=== PATIENT | female | born 1950 | race Caucasian/White ===

== ENCOUNTER → 2018-01-01 06:58 | Outpatient (CLI) | payer MEDICARE, SELFPAY ==
[2018-01-01 10:05] LABS: Alanine Aminotransferase 40 IU/L (9-52); Albumin 4.1 g/dL (3.5-5.0); Albumin Globulin Ratio 1.6 (1.0-2.8); Alkaline Phosphatase 89 U/L (38-126); Aspartate Aminotransferase 27 IU/L (14-36); BUN Creatinine Ratio 24.3 (6-22); Bilirubin Total 0.4 mg/dL (0.2-1.3); Blood Urea Nitrogen 17 mg/dL (7-17); Calcium 9.8 mg/dL (8.4-10.2); Carbon Dioxide 28 mmol/L (22-32); Chloride 102 mmol/L (98-107); Cholesterol 220 mg/dL (140-199); Estimated Glomerular Filt Rate > 60.0 mL/min (>60); Globulin 2.6 g/dL (1.7-4.1); Glucose 126 mg/dL (80-110); HDL Cholesterol 76 mg/dL (40-60); HEMOLYSIS < 15 (0-50); LDL Cholesterol Calculated 85 mg/dL (<100); Potassium 4.6 mmol/L (3.4-5.1); Sodium 140 mmol/L (137-145); Total Protein 6.7 g/dL (6.3-8.2); Triglycerides 297 mg/dL (35-150)
[2018-01-03 16:58] LABS: TSH w/ Reflex to FT4 1.77 uIU/mL (0.47-4.68)
== END ==
PROVIDERS: PCP Internal Medicine; Visit Provider Internal Medicine Cardiovascular Disease
DX: E78.2 Mixed hyperlipidemia (principal); I48.0 Paroxysmal atrial fibrillation
CPT/HCPCS: 36415; 80053; 80061; 84443

== ENCOUNTER → 2018-08-29 09:29 | Outpatient (CLI) | payer MEDICARE, SELFPAY ==
[2018-08-29 10:18] LABS: Hemoglobin A1C% w Est Avg Glu 6.7 % (4.0-6.0)
== END ==
PROVIDERS: PCP Family Medicine; Visit Provider Internal Medicine Endocrinology, Diabetes & Metabolism
DX: E11.9 Type 2 diabetes mellitus without complications (principal)
CPT/HCPCS: 36415; 83036

== ENCOUNTER 2018-10-11 15:15 | Outpatient (RCR) | payer MEDICARE, SELFPAY ==
--- NOTE | 2018-08-01 12:02 | PT.OIE ---
Current Diagnoses Low back pain (07/31/18) Past Medical History (Last Reviewed 07/01/18 @ 10:26 by Christine Sanchez DO) Paroxysmal atrial fibrillation (Chronic) Type 2 diabetes mellitus (Chronic) Hypothyroidism (Chronic) Hyperlipidemia (Chronic) Gastritis (Chronic) Past Surgical History (Last Reviewed 07/01/18 @ 10:26 by Christine Sanchez DO) H/O oophorectomy (Acute) H/O lithotripsy (Resolved) H/O nasal septoplasty (Resolved) History of cholecystectomy (Resolved) Rectal fistula (Resolved) S/P breast lumpectomy (Resolved) Provider Visit Care Team Role Provider Type Christine Sanchez DO Attending Provider Physician Primary Care Provider Specialty: [facility] Address: [address] [place] [address], [facility] Email: [email or web address] Physical Therapy Initial Evaluation PT-OP-A Visit Information Start: 08/01/18 11:35 Freq: Status: Active Protocol: Document 07/31/18 14:30 [facility] (Rec: 08/01/18 12:02 [facility] [email or web address]) Out-Patient Physical Therapy Visit Information Visit Information Visit Type Initial Evaluation Visit Note 68 year old active female with c/o left sided SI pain rated 4/10 and c/o numbness that goes down her left leg to the thigh region Visit Start Time 14:30 Visit Stop Time 15:15 Total Visit Minutes 45 Visit Number 1 Evaluation Information Evaluation Date 07/31/18 PT-OP-B Current Condition Start: 08/01/18 11:35 Freq: Status: Active Protocol: Document 07/31/18 14:30 [facility] (Rec: 08/01/18 12:02 [facility] [email or web address]) Current Condition History of Current Condition Onset Date approx 1 year ago Current Complaints c/o left sided SI and LBP with constant left LE numbness that is worsening History of Current Condition Gini is a active 68 year old female who began noticing left sided LBP/SI pain approximately 1 year ago that is progressing and now includes a numbness into the left medial thigh region. Deep does yoga a few days per week, walks 5 days per week, weight training 2-3 times per week, and does the eliptical warehouse trainer 1xm per week . She reports her back pain increases with forward folds in yoga and standing for long periods of time. She also radha up with left sided SI pain and nerve sx in the left leg Treatment Goals Patient/Caregiver Goals Gini would like to continue with her exercise level and ADL's without pain PT-OP-F Manual Assessment Start: 08/01/18 11:35 Freq: Status: Active Protocol: Document 07/31/18 14:30 [facility] (Rec: 08/01/18 12:02 [facility] [email or web address]) Manual Assessments Soft Tissue Assessment Soft Tissue Mobility Assessment paraspinal tightness L>R low back, left sided quadratus lumborum tightness, left sided piriformis tightness, left sided illiopsoas tightness Joint Mobility Assessment Joint Mobility Assessment + ASLR bilaterally for SI instability PA glides at L1-L3 increase nerve symptoms PT-OP-H Neuro Start: 08/01/18 11:35 Freq: Status: Active Protocol: Document 07/31/18 14:30 [facility] (Rec: 08/01/18 12:02 [facility] [email or web address]) Sensation Evaluation Gross Sensation Gross Sensation Left LE Impaired Sensation Description Numbness Dermatome Impairments L3 PT-OP-J Posture/Palpation/Skin Start: 08/01/18 11:35 Freq: Status: Active Protocol: Document 07/31/18 14:30 [facility] (Rec: 08/01/18 12:02 [facility] [email or web address]) Palpation Assessment Location Three Palpation Location piriformis Palpation Findings Soft Tissue Tightness Tenderness Two Palpation Location paraspinals Palpation Findings Soft Tissue Tightness Muscle Guarding One Palpation Location left sacral base Palpation Findings Tenderness PT-OP-K Range of Motion Start: 08/01/18 11:35 Freq: Status: Active Protocol: Document 07/31/18 14:30 [facility] (Rec: 08/01/18 12:02 [facility] [email or web address]) Lumbar Spine Range of Motion Lumbar Spine Active Testing Position Standing Flexion 90 Extension 15 Rotation Left 70 Rotation Right 70 Lateral Flexion Left 10 Lateral Flexion Right 15 ROM Limitations Soft Tissue Tightness Comments forward flexion causes left SI pain, left sidebend reproduces left sided LE numbness PT-OP-M Strength Start: 08/01/18 11:35 Freq: Status: Active Protocol: Document 07/31/18 14:30 [facility] (Rec: 08/01/18 12:02 [facility] [email or web address]) Trunk Strength Trunk Manual Muscle Testing Core Stabilization decreased force closure of the SI joint, decreased TA facilitation PT-OP-Q Treatments Start: 08/01/18 11:35 Freq: Status: Active Protocol: Document 07/31/18 14:30 [facility] (Rec: 08/01/18 12:02 [facility] [email or web address]) Therapeutic Exercises Other Exercises 3 Other Exercise Name 1/2 kneeling hip flexor stretch Side bilateral 2 Other Exercise Name seated right sidebends to open up the left side 1 Other Exercise Name quadraped sidebends to open up the left side Side right Reps/Minutes x 10 reps PT-OP-T Assessment and Plan Start: 08/01/18 11:35 Freq: Status: Active Protocol: Document 07/31/18 14:30 [facility] (Rec: 08/01/18 12:02 [facility] [email or web address]) Physical Therapy Assessment Rehab Potential Rehabilitation Potential Excellent Evaluation Complexity Number of Personal Factors/Comorbidities 0 Number of Body Systems Impaired 1-2 Clinical Presentation at Evaluation Stable Impairments Impairments Activity Tolerance Pain Soft Tissue Mobility Strength Tone Goals Four Impairment left sided L3 dermatome numbness [employer] Installer Goal (LTG) Decrease nerve symptoms in the left LE with a ther ex, stretching, and manual therapy program Three Impairment tightness of the left greater than right illiopsoas and piriformis Short Term Goal (STG) improve mobility of the iliopsoas and piriformis to help improve ROM and decrease pain STG Duration 6 weeks Two Impairment pain with left sidebending and forward bend Short Term Goal (STG) Improve lumbar spine ROM to allow for full pain free lumbar spine ROM STG Duration 6 weeks One Impairment Left sided SI and LBP rated 4/ 10 Short Term Goal (STG) With stretches to open up the left lateral side of the spine and manual therapy work on the sacrum and spine Gini is able to decrease her c/o pain to 1-2/10 STG Duration 6 weeks Assessment Summary Assessment Gini is a active 68 year old female with c/o left sided SI pain and left sided numbness into the medial thight that has been worsening over the past year. She is tender at her left sacral base to palpation and pain here increases with lumbar flexion. She has + tests for decreased force closure of the SI joint and would benefit from core stabilization exercises. Her nerve symptoms are in the L3 dermatome and PA glides over L1-L3 reproduce symptoms in the left medial thigh. She is guarded in the lumbar paraspinals in this region as well as being tight in the left iliopsoas. We will work on specific stretching for this area along with the core stabilization to help decrease irritation to the nerve. Gini responded well to PT today and tolerated the stertches to open up her left lumbar spine well. Physical Therapy Plan Frequency and Duration Frequency of Treatment 2x/Week Duration of Treatment 8 weeks Plan of Care Start Date 07/31/18 Plan of Care End Date 09/25/18 Therapeutic Interventions Therapeutic Interventions Home Exercise Program Joint Mobilizations Manual Therapy Neuromuscular Re-education Patient/Caregiver Education Self-Care/Home Management Soft Tissue Mobilization Therapeutic Exercises Next Visit Focus/Plan Next Note Type Treatment Note Next Visit Plan review sidebending exercises, work on manual release of the left iliopsoas, PA glides of the upper lumbar spine, TA stabilization
--- NOTE | 2018-08-22 15:31 | PT.OTN ---
Current Diagnoses Low back pain (08/21/18) Physical Therapy Treatment Note PT-OP-A Visit Information Start: 08/01/18 11:35 Freq: Status: Active Protocol: Document 08/21/18 13:00 [facility] (Rec: 08/22/18 15:31 [facility] [id number]) Out-Patient Physical Therapy Visit Information Visit Information Visit Type Treatment Note Visit Start Time 13:00 Visit Stop Time 13:45 Total Visit Minutes 45 Visit Number 2 Evaluation Information Evaluation Date 07/31/18 PT-OP-B Current Condition Start: 08/01/18 11:35 Freq: Status: Active Protocol: Document 07/31/18 14:30 [facility] (Rec: 08/01/18 12:02 [facility] [email or web address]) Current Condition History of Current Condition Onset Date approx 1 year ago Current Complaints c/o left sided SI and LBP with constant left LE numbness that is worsening History of Current Condition Gini is a active 68 year old female who began noticing left sided LBP/SI pain approximately 1 year ago that is progressing and now includes a numbness into the left medial thigh region. Deep does yoga a few days per week, walks 5 days per week, weight training 2-3 times per week, and does the eliptical sales trainer 1xm per week . She reports her back pain increases with forward folds in yoga and standing for long periods of time. She also radha up with left sided SI pain and nerve sx in the left leg Treatment Goals Patient/Caregiver Goals Gini would like to continue with her exercise level and ADL's without pain PT-OP-C Subjective Start: 08/01/18 11:35 Freq: Status: Active Protocol: Document 08/21/18 13:00 [facility] (Rec: 08/22/18 15:31 [facility] [id number]) OP-PT Subjective Patient Comments Patient Comments Gini reports she is having more discomfort today at the left LI joint. 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 and her left leg is always in front PT-OP-F Manual Assessment Start: 08/01/18 11:35 Freq: Status: Active Protocol: Document 07/31/18 14:30 [facility] (Rec: 08/01/18 12:02 [facility] [email or web address]) Manual Assessments Soft Tissue Assessment Soft Tissue Mobility Assessment paraspinal tightness L>R low back, left sided quadratus lumborum tightness, left sided piriformis tightness, left sided illiopsoas tightness Joint Mobility Assessment Joint Mobility Assessment + ASLR bilaterally for SI instability PA glides at L1-L3 increase nerve symptoms PT-OP-H Neuro Start: 08/01/18 11:35 Freq: Status: Active Protocol: Document 07/31/18 14:30 [facility] (Rec: 08/01/18 12:02 [facility] [email or web address]) Sensation Evaluation Gross Sensation Gross Sensation Left LE Impaired Sensation Description Numbness Dermatome Impairments L3 PT-OP-J Posture/Palpation/Skin Start: 08/01/18 11:35 Freq: Status: Active Protocol: Document 07/31/18 14:30 [facility] (Rec: 08/01/18 12:02 [facility] [email or web address]) Palpation Assessment Location Three Palpation Location piriformis Palpation Findings Soft Tissue Tightness Tenderness Two Palpation Location paraspinals Palpation Findings Soft Tissue Tightness Muscle Guarding One Palpation Location left sacral base Palpation Findings Tenderness PT-OP-K Range of Motion Start: 08/01/18 11:35 Freq: Status: Active Protocol: Document 07/31/18 14:30 [facility] (Rec: 08/01/18 12:02 [facility] [email or web address]) Lumbar Spine Range of Motion Lumbar Spine Active Testing Position Standing Flexion 90 Extension 15 Rotation Left 70 Rotation Right 70 Lateral Flexion Left 10 Lateral Flexion Right 15 ROM Limitations Soft Tissue Tightness Comments forward flexion causes left SI pain, left sidebend reproduces left sided LE numbness PT-OP-M Strength Start: 08/01/18 11:35 Freq: Status: Active Protocol: Document 07/31/18 14:30 [facility] (Rec: 08/01/18 12:02 [facility] [email or web address]) Trunk Strength Trunk Manual Muscle Testing Core Stabilization decreased force closure of the SI joint, decreased TA facilitation PT-OP-Q Treatments Start: 08/01/18 11:35 Freq: Status: Active Protocol: Document 08/21/18 13:00 [facility] (Rec: 08/22/18 15:31 [facility] [id number]) Therapeutic Exercises Supine Exercises 2 Supine Exercise Name supine TA bracing 1 Supine Exercise Name supine ball squeeze with TA and pelvic floor activation Other Exercises 4 Other Exercise Name foam roll stretch 3 Other Exercise Name patricia of adryan test position as 1/2 kneeling was sore on her knees 2 Other Exercise Name bilateral sidebends 1 Other Exercise Name bilateral quadraped sidebends Manual Therapy Treatment Soft Tissue Mobilization 1 Body Location prone STM over the low back paraspinals and sacral region Self-Care/Home Management Treatment Education Patient Education Body Mechanics Caregiver Education education on the SI joint and positioning that she can try for her painitng PT-OP-T Assessment and Plan Start: 08/01/18 11:35 Freq: Status: Active Protocol: Document 08/21/18 13:00 [facility] (Rec: 08/22/18 15:31 [facility] [id number]) Physical Therapy Assessment Assessment Summary Assessment 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 She is tight in her thoracic spine and tends to lean forward from the waist so I did start her on the foam roll today. We also began SI stability exercises and she tolerated these well today Physical Therapy Plan Frequency and Duration Frequency of Treatment 2x/Week Duration of Treatment 8 weeks Plan of Care Start Date 07/31/18 Plan of Care End Date 09/25/18 Therapeutic Interventions Therapeutic Interventions Home Exercise Program Joint Mobilizations Manual Therapy Neuromuscular Re-education Patient/Caregiver Education Self-Care/Home Management Soft Tissue Mobilization Therapeutic Exercises Next Visit Focus/Plan Next Note Type Treatment Note Next Visit Plan continue working on SI stabilization, releasing tight paraspinals and alignment while painting.
--- NOTE | 2018-09-04 16:54 | PT.OTN ---
Current Diagnoses Low back pain (09/04/18) Physical Therapy Treatment Note PT-OP-A Visit Information Start: 08/01/18 11:35 Freq: Status: Active Protocol: Document 09/04/18 16:43 [facility] (Rec: 09/04/18 16:53 [facility] [email or web address]) Out-Patient Physical Therapy Visit Information Visit Information Visit Type Treatment Note Visit Start Time 13:15 Visit Stop Time 14:00 Total Visit Minutes 45 Visit Number 3 Evaluation Information Evaluation Date 07/31/18 PT-OP-B Current Condition Start: 08/01/18 11:35 Freq: Status: Active Protocol: Document 07/31/18 14:30 [facility] (Rec: 08/01/18 12:02 [facility] [email or web address]) Current Condition History of Current Condition Onset Date approx 1 year ago Current Complaints c/o left sided SI and LBP with constant left LE numbness that is worsening History of Current Condition Gini is a active 68 year old female who began noticing left sided LBP/SI pain approximately 1 year ago that is progressing and now includes a numbness into the left medial thigh region. 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 She reports her back pain increases with forward folds in yoga and standing for long periods of time. She also [place] up with left sided SI pain and nerve sx in the left leg Treatment Goals Patient/Caregiver Goals Gini would like to continue with her exercise level and ADL's without pain PT-OP-C Subjective Start: 08/01/18 11:35 Freq: Status: Active Protocol: Document 09/04/18 16:43 [facility] (Rec: 09/04/18 16:53 [facility] [email or web address]) OP-PT Subjective Patient Comments Patient Comments Gini reports she is continuing to have left sided radicular symptoms. She has been working on her stretches but has not noticed a change in symptoms PT-OP-F Manual Assessment Start: 08/01/18 11:35 Freq: Status: Active Protocol: Document 07/31/18 14:30 [facility] (Rec: 08/01/18 12:02 [facility] [email or web address]) Manual Assessments Soft Tissue Assessment Soft Tissue Mobility Assessment paraspinal tightness L>R low back, left sided quadratus lumborum tightness, left sided piriformis tightness, left sided illiopsoas tightness Joint Mobility Assessment Joint Mobility Assessment + ASLR bilaterally for SI instability PA glides at L1-L3 increase nerve symptoms PT-OP-H Neuro Start: 08/01/18 11:35 Freq: Status: Active Protocol: Document 07/31/18 14:30 [facility] (Rec: 08/01/18 12:02 [facility] [email or web address]) Sensation Evaluation Gross Sensation Gross Sensation Left LE Impaired Sensation Description Numbness Dermatome Impairments L3 PT-OP-J Posture/Palpation/Skin Start: 08/01/18 11:35 Freq: Status: Active Protocol: Document 07/31/18 14:30 [facility] (Rec: 08/01/18 12:02 [facility] [email or web address]) Palpation Assessment Location Three Palpation Location piriformis Palpation Findings Soft Tissue Tightness Tenderness Two Palpation Location paraspinals Palpation Findings Soft Tissue Tightness Muscle Guarding One Palpation Location left sacral base Palpation Findings Tenderness PT-OP-K Range of Motion Start: 08/01/18 11:35 Freq: Status: Active Protocol: Document 07/31/18 14:30 [facility] (Rec: 08/01/18 12:02 [facility] [email or web address]) Lumbar Spine Range of Motion Lumbar Spine Active Testing Position Standing Flexion 90 Extension 15 Rotation Left 70 Rotation Right 70 Lateral Flexion Left 10 Lateral Flexion Right 15 ROM Limitations Soft Tissue Tightness Comments forward flexion causes left SI pain, left sidebend reproduces left sided LE numbness PT-OP-M Strength Start: 08/01/18 11:35 Freq: Status: Active Protocol: Document 07/31/18 14:30 [facility] (Rec: 08/01/18 12:02 [facility] [email or web address]) Trunk Strength Trunk Manual Muscle Testing Core Stabilization decreased force closure of the SI joint, decreased TA facilitation PT-OP-Q Treatments Start: 08/01/18 11:35 Freq: Status: Active Protocol: Document 09/04/18 16:43 [facility] (Rec: 09/04/18 16:53 [facility] [email or web address]) Therapeutic Exercises Supine Exercises 3 Supine Exercise Name iliopsoas stretch in supine 2 Supine Exercise Name supine TA bracing with marches and SLR Other Exercises 2 Other Exercise Name bilateral sidebends Manual Therapy Treatment Soft Tissue Mobilization 1 Body Location prone STM over the low back paraspinals and sacral region Manual Techniques 1 Type manual piriformis stretch bilaterally PT-OP-R Modalities Start: 09/04/18 16:53 Freq: Status: Active Protocol: Document 09/04/18 16:53 [facility] (Rec: 09/04/18 16:54 [facility] [email or web address]) Spinal Traction Traction Treatment Lumbar Method Mechanical Static Patient Position Hooklying Force Applied (Pounds) 40 Duration of Treatment (Minutes) 10 Heating Pad Applied No PT-OP-T Assessment and Plan Start: 08/01/18 11:35 Freq: Status: Active Protocol: Document 09/04/18 16:43 [facility] (Rec: 09/04/18 16:53 [facility] [email or web address]) Physical Therapy Assessment Assessment Summary Assessment trial of lumbar traction today to see if decompression would help to decrease nerve symptoms. 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 Reassess how Gini tolerated traction next visit
--- NOTE | 2018-09-12 09:18 | PT.OTN ---
Current Diagnoses Low back pain (09/11/18) Physical Therapy Treatment Note PT-OP-A Visit Information Start: 08/01/18 11:35 Freq: Status: Active Protocol: Document 09/11/18 13:00 [facility] (Rec: 09/12/18 09:18 [facility] [email or web address]) Out-Patient Physical Therapy Visit Information Visit Information Visit Type Treatment Note Visit Start Time 13:00 Visit Stop Time 13:45 Total Visit Minutes 45 Visit Number 4 PT-OP-B Current Condition Start: 08/01/18 11:35 Freq: Status: Active Protocol: Document 07/31/18 14:30 [facility] (Rec: 08/01/18 12:02 [facility] [email or web address]) Current Condition History of Current Condition Onset Date approx 1 year ago Current Complaints c/o left sided SI and LBP with constant left LE numbness that is worsening History of Current Condition Gini is a active 68 year old female who began noticing left sided LBP/SI pain approximately 1 year ago that is progressing and now includes a numbness into the left medial thigh region. Deep does yoga a few days per week, walks 5 days per week, weight training 2-3 times per week, and does the eliptical executive producer 1xm per week . She reports her back pain increases with forward folds in yoga and standing for long periods of time. She also radha up with left sided SI pain and nerve sx in the left leg Treatment Goals Patient/Caregiver Goals Gini would like to continue with her exercise level and ADL's without pain PT-OP-C Subjective Start: 08/01/18 11:35 Freq: Status: Active Protocol: Document 09/11/18 13:00 [facility] (Rec: 09/12/18 09:18 [facility] [email or web address]) OP-PT Subjective Patient Comments Patient Comments Gini reports she liked the way the traction felt last visit but then she did have more symptoms later on. She would like to try it again PT-OP-F Manual Assessment Start: 08/01/18 11:35 Freq: Status: Active Protocol: Document 07/31/18 14:30 [facility] (Rec: 08/01/18 12:02 [facility] [email or web address]) Manual Assessments Soft Tissue Assessment Soft Tissue Mobility Assessment paraspinal tightness L>R low back, left sided quadratus lumborum tightness, left sided piriformis tightness, left sided illiopsoas tightness Joint Mobility Assessment Joint Mobility Assessment + ASLR bilaterally for SI instability PA glides at L1-L3 increase nerve symptoms PT-OP-H Neuro Start: 08/01/18 11:35 Freq: Status: Active Protocol: Document 07/31/18 14:30 [facility] (Rec: 08/01/18 12:02 [facility] [email or web address]) Sensation Evaluation Gross Sensation Gross Sensation Left LE Impaired Sensation Description Numbness Dermatome Impairments L3 PT-OP-J Posture/Palpation/Skin Start: 08/01/18 11:35 Freq: Status: Active Protocol: Document 07/31/18 14:30 [facility] (Rec: 08/01/18 12:02 [facility] [email or web address]) Palpation Assessment Location Three Palpation Location piriformis Palpation Findings Soft Tissue Tightness Tenderness Two Palpation Location paraspinals Palpation Findings Soft Tissue Tightness Muscle Guarding One Palpation Location left sacral base Palpation Findings Tenderness PT-OP-K Range of Motion Start: 08/01/18 11:35 Freq: Status: Active Protocol: Document 07/31/18 14:30 [facility] (Rec: 08/01/18 12:02 [facility] [email or web address]) Lumbar Spine Range of Motion Lumbar Spine Active Testing Position Standing Flexion 90 Extension 15 Rotation Left 70 Rotation Right 70 Lateral Flexion Left 10 Lateral Flexion Right 15 ROM Limitations Soft Tissue Tightness Comments forward flexion causes left SI pain, left sidebend reproduces left sided LE numbness PT-OP-M Strength Start: 08/01/18 11:35 Freq: Status: Active Protocol: Document 07/31/18 14:30 [facility] (Rec: 08/01/18 12:02 [facility] [email or web address]) Trunk Strength Trunk Manual Muscle Testing Core Stabilization decreased force closure of the SI joint, decreased TA facilitation PT-OP-Q Treatments Start: 08/01/18 11:35 Freq: Status: Active Protocol: Document 09/11/18 13:00 [facility] (Rec: 09/12/18 09:18 [facility] [email or web address]) Therapeutic Exercises Supine Exercises 3 Supine Exercise Name iliopsoas stretch in supine 2 Supine Exercise Name supine TA bracing with marches and SLR Comments increased to level 2 1 Supine Exercise Name supine ball squeeze with TA and pelvic floor activation Manual Therapy Treatment Soft Tissue Mobilization 1 Body Location prone STM over the low back paraspinals and sacral region PT-OP-R Modalities Start: 09/04/18 16:53 Freq: Status: Active Protocol: Document 09/11/18 13:00 [facility] (Rec: 09/12/18 09:18 [facility] [email or web address]) Spinal Traction Traction Treatment Lumbar Method Mechanical Static Patient Position Hooklying Force Applied (Pounds) 40 Duration of Treatment (Minutes) 10 Heating Pad Applied No PT-OP-T Assessment and Plan Start: 08/01/18 11:35 Freq: Status: Active Protocol: Document 09/11/18 13:00 [facility] (Rec: 09/12/18 09:18 [facility] [email or web address]) Physical Therapy Assessment Assessment Summary Assessment Good tolerance for traction again today, decreased parapspinal muscle guarding. Gini is still unlocking in the left SI joint with ASLR test. Physical Therapy Plan Frequency and Duration Frequency of Treatment 2x/Week Duration of Treatment 8 weeks Plan of Care Start Date 07/31/18 Plan of Care End Date 09/25/18 Therapeutic Interventions Therapeutic Interventions Home Exercise Program Joint Mobilizations Manual Therapy Neuromuscular Re-education Patient/Caregiver Education Self-Care/Home Management Soft Tissue Mobilization Therapeutic Exercises Next Visit Focus/Plan Next Note Type Treatment Note Next Visit Plan Continue to work on traction, SI joint stabilization and MFR of the paraspinals
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
== END 2018-11-28 16:05 | disposition home or self-care (01) ==
LOC: PHYS 15:15
PROVIDERS: PCP Family Medicine; Visit Provider Family Medicine
DX: M54.5 Low back pain (principal)
CPT/HCPCS: 97012; 97110; 97140; 97161; 97164; 97535

== ENCOUNTER → 2018-11-12 15:25 | Outpatient (CLI) | payer MEDICARE, SELFPAY ==
--- NOTE | 2018-11-12 | DI.MG.S_ITS ---
BILATERAL DIGITAL SCREENING MAMMOGRAM 3D/2D WITH CAD: 11/12/2018 CLINICAL: Routine screening. Comparison is made to exams dated: 09/05/2017 mammogram, 06/03/2016 mammogram, and 03/19/2015 mammogram - [facility]. There are scattered fibroglandular elements in both breasts. Current study was also evaluated with a Computer Aided Detection (CAD) system. No significant masses, calcifications, or other findings are seen in either breast. There has been no significant interval change. IMPRESSION: NEGATIVE There is no mammographic evidence of malignancy. A 1 year screening mammogram is recommended. This exam was interpreted at Station ID: [id number]. NOTE: For mammograms, a report in lay terms will be sent to the patient. Approximately 15% of breast malignancies will not be visualized mammographically. In the management of a palpable breast mass, a negative mammogram must not discourage biopsy of a clinically suspicious lesion. Electronically Signed By: Roman castillo/beata:11/12/2018 17:04:26 letter sent: Normal Exam ACR BI-RADS Category 1: Negative 3341F
== END ==
PROVIDERS: PCP Family Medicine; Visit Provider Family Medicine
DX: Z12.31 Encounter for screening mammogram for malignant neoplasm of breast (principal)
CPT/HCPCS: 77063; 77067

== ENCOUNTER → 2018-12-01 11:09 | Outpatient (CLI) | payer MEDICARE, SELFPAY ==
[2018-12-01 11:37] LABS: Hemoglobin A1C% w Est Avg Glu 7.5 % (4.0-6.0)
== END ==
PROVIDERS: PCP Family Medicine; Visit Provider Internal Medicine Endocrinology, Diabetes & Metabolism
DX: E11.9 Type 2 diabetes mellitus without complications (principal)
CPT/HCPCS: 36415; 83036

== ENCOUNTER → 2019-02-18 07:25 | Outpatient (CLI) | payer MEDICARE, SELFPAY ==
[2019-02-18 08:56] LABS: Alanine Aminotransferase 31 IU/L (9-52); Albumin 4.2 g/dL (3.5-5.0); Albumin Globulin Ratio 1.6 (1.0-2.8); Alkaline Phosphatase 75 U/L (38-126); Aspartate Aminotransferase 27 IU/L (14-36); BUN Creatinine Ratio 25.7 (6-22); Bilirubin Total 0.5 mg/dL (0.2-1.3); Blood Urea Nitrogen 18 mg/dL (7-17); Calcium 9.8 mg/dL (8.4-10.2); Carbon Dioxide 29 mmol/L (22-32); Chloride 103 mmol/L (98-107); Cholesterol 192 mg/dL (140-199); Estimated Glomerular Filt Rate > 60.0 mL/min (>60); Globulin 2.6 g/dL (1.7-4.1); Glucose 122 mg/dL (80-110); HDL Cholesterol 84 mg/dL (40-60); HEMOLYSIS < 15 (0-50); LDL Cholesterol Calculated 81 mg/dL (<100); Potassium 4.6 mmol/L (3.4-5.1); Sodium 138 mmol/L (137-145); Total Protein 6.8 g/dL (6.3-8.2); Triglycerides 136 mg/dL (35-150)
== END ==
PROVIDERS: PCP Family Medicine; Visit Provider Internal Medicine Cardiovascular Disease
DX: I48.0 Paroxysmal atrial fibrillation (principal); E78.2 Mixed hyperlipidemia
CPT/HCPCS: 36415; 80053; 80061

== ENCOUNTER → 2019-06-11 08:32 | Outpatient (CLI) | payer MEDICARE, SELFPAY ==
[2019-06-11 10:38] LABS: Hemoglobin A1C% w Est Avg Glu 6.7 % (4.0-6.0)
[2019-06-11 10:45] LABS: BUN Creatinine Ratio 16.7 (6-22); Blood Urea Nitrogen 15 mg/dL (7-17); Calcium 9.9 mg/dL (8.4-10.2); Carbon Dioxide 26 mmol/L (22-32); Chloride 103 mmol/L (98-107); Estimated Glomerular Filt Rate > 60.0 mL/min (>60); Glucose 135 mg/dL (80-110); HEMOLYSIS < 15 (0-50); Potassium 4.9 mmol/L (3.4-5.1); Sodium 139 mmol/L (137-145)
== END ==
PROVIDERS: PCP Family Medicine; Visit Provider Internal Medicine Endocrinology, Diabetes & Metabolism
DX: E11.9 Type 2 diabetes mellitus without complications (principal)
CPT/HCPCS: 36415; 80048; 83036

== ENCOUNTER → 2019-07-08 14:09 | Outpatient (CLI) | payer MEDICARE, SELFPAY | PROVIDERS: PCP Family Medicine; Visit Provider Orthopaedic Surgery Foot and Ankle Surgery | DX: Z01.818 Encounter for other preprocedural examination (principal) | CPT/HCPCS: 93005 ==

== ENCOUNTER 2019-07-12 11:17 | Observation (INO) | payer MEDICARE, SELFPAY ==
[2019-07-09 12:28] VITALS: BMI 26.2
[2019-07-12] VITALS (22 sets, daily range): BP systolic 108–149; BP diastolic 53–91; PULSE 63–85; RESP 10–94; TEMP 36.2–36.9; O2SAT 24–100; BMI 27.3
[2019-07-12] MEDS: LACTATED RINGERS 1,000 ML 42 ML IV ×2 (11:55→16:14)
--- NOTE | 2019-07-12 14:04 | PM.PREOP ---
Pre-operative Note Interval Note History & Physical reviewed/Exam performed by Physician: Yes Changes to H&P: No
[2019-07-12] MEDS: fentaNYL 100 MCG/2 ML INJ 50 MCG IV (14:15)
[2019-07-12] MEDS: MIDAZOLAM 2 MG/2 ML VIAL IV (14:16)
--- NOTE | 2019-07-12 14:36 | SUR.PREOP ---
Block start time [1415] . Monitoring initiated and maintained throughout procedure. Oxygen and medications given per anesthesiologist instructions. Patient remained stable throughout procedure, no adverse reactions noted. Block end time [1431].
[2019-07-12] MEDS: CEFAZOLIN 2 GM/100 ML FROZ.PIGGY IV ×2 (14:37→22:16)
--- NOTE | 2019-07-12 15:07 | SUR.OPER ---
Supine on padded OR bed, head on pillow, left arm secured on padded arm board at <90 degrees abduction,right arm on hand table draped free, legs uncrossed, safety belt at thigh, tape over blanket over lower legs.
--- NOTE | 2019-07-12 15:30 | PM.PROC.1 ---
Procedures Date/Time Date of procedure: 07/12/19 Time of procedure: 14:30 Nerve Block Time out performed: Yes Location of anesthetic used: 0.5% Ropivacaine 10ml and 2% Lidocaine w/ epi 2ml Amount of anesthesia used (mL): 12 Nerve blocks: brachial plexus (right interscalene with ultrasound imaging) Procedure successful: Yes Patient tolerated procedure: well and no complications Complications: none Additional comments: Procedure offered and explained, questions answered and consent signed. Routine monitors and nasal cannula O2. Twitch monitor applied. IV sedation: fentanyl 50mcg and midazolam 1mg given. Cloroprep and sterile drapes placed. Landmarks identified and verified by ultrasound. Skin wheal using 25g and 1% lidocaine. 50mm sheathed nerve stimulator needle used. No twitch obtained but excellent visualization on ultrasound. Negative 2ml test dose followed by remaining 10ml prepared solution. Patient tolerated well. Arm feeling heavy following block. No complications. Patient ready for the OR.
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
[2019-07-12] MEDS: fentaNYL 100 MCG/2 ML INJ IV ×3 (16:27→17:49)
[2019-07-12] MEDS: HYDROCODONE/ACET 5/325 TABLET 1 TAB PO ×2 (17:07→17:36)
[2019-07-12] MEDS: ONDANSETRON 4 MG/2 ML INJ IV (17:20)
--- NOTE | 2019-07-12 17:25 | SUR.PHASEII ---
Patient c/o nausea after transferring to O[facility]. Medicated with Zofran. Queaze provided. Nausea improved quickly.
[2019-07-12] MEDS: METOCLOPRAMIDE 10 MG/2 ML INJ IV (18:06)
--- NOTE | 2019-07-12 18:10 | SUR.PHASEII ---
Patient vomited approx 25mls clear, green fluid. Medicated with Reglan.
--- NOTE | 2019-07-12 18:17 | SUR.PHASEII ---
Dr. Dillard notified patient having trouble with pain control. VVO for Toradol 30mg IV.
[2019-07-12] MEDS: KETOROLAC 30 MG/ML VIAL IV (18:19)
--- NOTE | 2019-07-12 18:36 | SUR.PHASEII ---
Report given to Nick.
--- NOTE | 2019-07-12 19:16 | PM.PNPO.1 ---
Subjective Subjective Date Patient Seen: 07/12/19 Time Patient Seen: 19:16 Interval history: call from pacu. pt with apparent diaphragmatic hemiparesis. likely from block. no sob but unable to maintain stats on RA. per nursing discussed with anethesia emd special education teacher. rec observation, did not think cxr needed at this time. --will admit for obs and O2 over night. also with IV toradol and limit narcotic. plan dc home tomorrow once block resolves and sats normal on RA. Pt has norco Rx on chart Exam Vital Signs (past 8 hours): - 07/12/19 11:39 07/12/19 16:18 07/12/19 16:24 Temperature 98.2 F 97.4 F L Pulse Rate 66 70 78 Respiratory Rate 15 12 20 Blood Pressure 123/65 132/61 108/72 Pulse Oximetry 97 93 93 07/12/19 16:28 07/12/19 16:33 07/12/19 16:43 Temperature Pulse Rate 74 74 70 Respiratory Rate 15 11 L 17 Blood Pressure 132/67 139/64 109/69 Pulse Oximetry 94 94 97 07/12/19 16:53 07/12/19 17:05 07/12/19 17:13 Temperature 97.2 F L Pulse Rate 66 63 65 Respiratory Rate 15 12 17 Blood Pressure 142/67 H 149/76 H 149/69 H Pulse Oximetry 93 91 95 07/12/19 17:33 07/12/19 17:57 07/12/19 18:11 Temperature 97.1 F L Pulse Rate 69 67 72 Respiratory Rate 94 H 10 L 12 Blood Pressure 143/67 H 146/68 H 143/75 H Pulse Oximetry 24 L 91 96 07/12/19 18:28 Temperature Pulse Rate 65 Respiratory Rate Blood Pressure 137/59 L Pulse Oximetry 91 Oxygen Delivery Method Room Air Oxygen Flow Rate 2 Assessment & Plan Post-op Postoperative Procedures: Procedures Operation Date: 07/12/19 12:45 Actual Procedures Side Surgeon p ORIF of 2-fragment intra-articular fracture of distal radius, closed treatment of ulnar styloid fracture Right Eleanor Dillard MD
--- NOTE | 2019-07-12 19:44 | SUR.PHASEII ---
after report from A Johann RN at 1836 I noted that Patient was s/p interscalene block and seemed to be causing paralysis of Right chest wall but not full pain relief of Right arm/ wrist. Monitored SPO2 continuously and pt was unable to maintain within acceptable range of 92 % or greater for more than 5 minutes without needing RN intervention. incentive spirometry trial with poor performance. lungs are clear but diminished on right. Dr Guzmán and Dr Villa contacted via telephone and made aware of patients ongoing struggle. Result was recommendation that pt be admitted for observation and SPO2 monitoring until block wears off. Dr Villa wrote transfer orders. pt transferred in stable condition at 1940
[2019-07-12] MEDS: SODIUM CHLORIDE 0.9% 1,000 ML 84 ML IV (20:08)
[2019-07-12] MEDS: METOPROLOL IR 25 MG TABLET 12.5 MG PO (21:26)
[2019-07-12] MEDS: DOCUSATE 100 MG CAPSULE PO (21:26)
[2019-07-13 03:00] VITALS: BP 114/70; PULSE 74; RESP 19; TEMP 36.6; O2SAT 95
--- NOTE | 2019-07-13 06:07 | PC.NURSE ---
Patient has O2 sats this night 95% on Room air. Patient complains of pain /, Scheduled Toradol given. Patient denies nausea. Dressing is clean/dry/intact w/ carey wrap and CMS is intact. SCD's are applied, bed alarm is on, call light is within reach, bed is low and locked.
[2019-07-13] MEDS: KETOROLAC 30 MG/ML VIAL IV ×2 (06:14)
[2019-07-13] MEDS: CEFAZOLIN 2 GM/100 ML FROZ.PIGGY IV (06:15)
[2019-07-13 08:00] VITALS: BP 137/80; PULSE 69; RESP 16; TEMP 36.6; O2SAT 95
[2019-07-13] MEDS: ASCORBIC ACID 500 MG TABLET 1000 MG PO (09:25)
[2019-07-13] MEDS: MULTIVITAMIN 1 TABLET 1 TAB PO (09:25)
[2019-07-13] MEDS: DOCUSATE 100 MG CAPSULE PO (09:25)
[2019-07-13] MEDS: PANTOPRAZOLE 20 MG TABLET PO (09:25)
[2019-07-13] MEDS: VITAMIN B COMPLEX 1 CAPSULE 1 CAP PO (09:25)
[2019-07-13] MEDS: ATORVASTATIN 20 MG TABLET PO (09:25)
[2019-07-13] MEDS: METOPROLOL IR 25 MG TABLET 12.5 MG PO (09:25)
[2019-07-13] MEDS: GLIMEPIRIDE 2 MG TABLET 4 MG PO (09:26)
--- NOTE | 2019-07-13 09:34 | PM.DS.1 ---
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 Discharge Providers Provider Discharge Date: 07/13/19 Primary care physician: Christine Sanchez DO Consults: 07/12/19 06:00 Consult to Anesthesiology Routine Comment: Consulting Provider: Anesthesiologist Reason for consultation: Post operative pain managment Has provider been notified: No 07/12/19 19:30 Consult to Respiratory Therapy Evaluate & Treat Comment: Physician Instructions: Evaluate and treat Discharge provider: Eleanor Dillard MD Summary Hospital Course Discharge Diagnosis: 1. Right distal radius fracture 2. Right ulnar styloid fracture 3. Right diaphragm rhys paralysis, transient 4. Diabetes Hospital Course: Patient is 61-year-old female that was admitted from the PACU to observation following her right distal radius ORIF. Patient had a symptomatic diaphragmatic rhys paresis likely a sequela of her regional block performed for postoperative pain control. And she had delayed presentation of the shortness of breath that was not apparent on the PACU. O2 saturations were maintained with supplemental oxygen on the floor and the patient's symptoms resolved as the block wore off. On postoperative day 1 the patient was asymptomatic and had normal oxygen saturations in the high 90s on room air. No subjective shortness of breath. Pain was controlled. Tolerating a p.o. diet and medications. The patient was alert and oriented and safe for discharge home. Status at Discharge Cognitive/behavioral status at discharge: oriented Functional status at discharge: independent ambulation Overall status at discharge: patient is progressing back to baseline Time Spent with Patient Time spent: Less than 30 minutes Exam Vital Signs (past 8 hours): - 07/13/19 03:00 07/13/19 08:00 Temperature 98 F 97.8 F Pulse Rate 74 69 Respiratory Rate 19 16 Blood Pressure 114/70 137/80 Pulse Oximetry 95 95 Oxygen Delivery Method Room Air Oxygen Flow Rate 0 Narrative Exam Narrative: General: Alert oriented female in no acute distress sitting up in bed. HEENT exam: Normocephalic atraumatic Respiratory exam: Unlabored on room air no shortness of breath no dyspnea or pain with breathing CV exam: Regular rate and rhythm Vital signs stable Upper extremity: Right upper extremity in splint. Wiggles fingers. Demonstrates finger flexion and extension FPL and EPL. Sensation grossly intact to light touch median radial ulnar nerves. Full range of motion of the elbow. Left upper extremity full range of motion nontender. Neurovascularly intact. Discharge Plan Discharge Plan Patient Disposition: Home Discharge Med Rec/Prescriptions Prescriptions: New hydrocodone-acetaminophen [[place]] 5-325 mg tablet 1 tab PO Q4H PRN (Reason: pain) Qty: 20 RF: 0 Continued (DME) blood sugar diagnostic [Blood Glucose Test] strip See Dose Instructions .Route .MEDSUPPLY Qty: 50 RF: 11 betamethasone dipropionate 0.05 % lotion 1 applictn TOP BID PRN (Reason: rash) Qty: 180 RF: 3 multivitamin [Multiple Vitamins] tablet 1 tab PO DAILY RF: 0 ascorbic acid (vitamin C) 1,000 mg tablet 1 gram PO DAILY RF: 0 atorvastatin 20 mg tablet 20 mg PO DAILY RF: 0 chromium picolinate 200 mcg capsule 400 mcg PO DAILY RF: 0 glimepiride 4 mg tablet 4 mg PO QAM RF: 0 omeprazole 20 mg capsule,delayed release(DR/EC) 20 mg PO DAILY RF: 0 vitamin B complex [B Complex-Vitamin B12] tablet 1 tab PO DAILY RF: 0 cholecalciferol (vitamin D3) 5,000 unit capsule 5,000 unit PO QWEEK RF: 0 coenzyme Q10 [Co Q-10] 300 mg capsule 300 mg PO DAILY RF: 0 metoprolol tartrate 25 mg tablet 12.5 mg PO BID RF: 0 cinnamon bark [Cinnamon] 500 mg capsule PO RF: 0 omega 4-ynm-qvo-fish oil [Fish Oil] 1,000 mg (120 mg-180 mg) capsule PO RF: 0 levothyroxine 75 mcg capsule 75 mcg PO .COMPLEX RF: 0 levothyroxine 50 mcg capsule 50 mcg PO .COMPLEX RF: 0 turmeric root extract 500 mg capsule 1,000 mg PO DAILY RF: 0 Follow up/Referrals: Eleanor Dillard MD [Physician] - (as scheduled/02/02) Discharge Orders: Discharge (Order); Ordered 07/13/19 Ordered By: Eleanor Dillard Provider Discharge Instructions Diet: Diet as Tolerated Activity: Elevate the hand to help swelling. No lifting greater than a coffee cup. Ice 20 minutes 3 times daily. Move fingers to avoid stiffness and help with swelling reduction. Keep the splint dry and intact Other treatments: May take chmg-eny-wivyvge ibuprofen/Advil or Aleve in addition to or in place of narcotic pain medications as tolerated. Maximum more prescription equivalent dosing of ibuprofen is 800 mg 3 times a day or 2 Aleve twice a day. In addition calcium and vitamin-D supplementation can help with bone healing. For patient's with normal kidney function, while healing of fracture, I recommended vitamin-D dosages are 2917-7175 units a day and 1200 mg of calcium a day. Skin/Wound/Dressing Care Report to your healthcare provider any signs of infection, such as:: chills, fever, night sweats, increased pain, unusual drainage and unusual redness Dressing: Keep dressing and splint clean dry and intact Visit Report/Discharge Packet Instructions: DI for Open Reduction Internal Fixation Surgery Stand Alone Forms: Surgery Discharge Discharge Data Primary Care Provider: Christine Sanchez Attending Provider: Eleanor Dillard VTE Deep Vein Thrombosis/Pulmonary Embolism Present on Admission: No
--- NOTE | 2019-07-13 11:03 | PC.NURSE ---
Day Shift- Pt A&OX4, pain 1/10 aching to right arm. Right arm cast CDI with carey wrap and sling. Arm elevated on pillows above heart level and encouraged pt to elevate when at home, ice pack PRN. Right fingers edematous, pt able to move fingers, not able to place thumb to each finger foretip. Cap refill less than 2 secs. Pt did not want prn [place] prior to going home. Explained to pt that she can also cut norco pill in half if not needing full dose, keep track of her pain, avoid constipation. Discharge summary packet reviewed with pt and her at bedside. [facility] has all belongings. No questions at this time. [facility] has follow up appointment for Dr. Dillard on Jul 23. Pt left unit via wheelchair in no distress at 1054 with [employer] escort, pt's present to drive pt home.
--- NOTE | 2019-07-13 11:24 | CM.DANOTE ---
Discharge Planning/Care Management DCP: assessment: case received Discussed in Team Rounds this morning. EMR reviewed. Pt is an 84 year old female who admitted yesterday for a scheduled ORIF to repair a R distal radius fracture. Surgeon: Dr. Dillard PCP: Dr. Sanchez Payer: Medicare and [facility] Admission status: OBS: confirmed by UR ISAURA Tyson. RN coordinator Schuyler stated in Rounds that pt was kept overnight after shortness of breath felt related to hemidiaphragm paralysis from regional anesthesia block. Went to room shortly after Rounds to check in with pt and continue the assessment process. Discovered that Dr. Dillard had rounded, deemed pt stable for d/c to home setting and that pt had left for home with her spouse. CM Discharge Assessment Start: 07/13/19 11:22 Freq: Status: Active Protocol: Document 07/13/19 11:23 ITV (Rec: 07/13/19 11:23 ITV [id number]) Discharge Planning Assessment Advance Directives? No History Provided By Medical Record Prior Living Arrangements House Household Members spouse Is patient alert and oriented? Yes Review Status In Process Pre-Anesthesia Assessment Start: 07/09/19 12:28 Freq: Status: Complete Protocol: Document 07/09/19 12:28 CAB (Rec: 07/09/19 12:34 CAB [id number]) Pre-Anesthesia Assessment PAC Comment Surgeon H&P not available at time of assess. PMH shows paroxysmal afib, no anticoagulation therapy noted Patient Information Reviewed Via Chart Review Primary Care Provider Christine Sanchez Seen Specialist in Last 12 Months Yes Specialist Seen Orthopedist Primary Language [employer] Line Driver Required No Height 162.56 cm Weight 69.4 kg Body Mass Index (BMI) 26.2 Barriers to Learning None Other Aids No Anesthesia Review Requested No Steam Conditioner Filling No alcohol intake current Smoking Status Never smoker Pain Present Pain Reported Musculoskeletal Symptoms Joint Pain,Limited Range of Motion Patient is completely paralyzed or No completely immobile Mental Status Oriented to own ability Is patient on oxygen? No Hx Sleep Apnea No Currently Taking a Beta Shelia Yes: Metoprolol Anti-Coagulant Therapy No Hx Pacemaker/ICD No Pacemaker Rep Required? No Comment Hx of paroxysmal afib dysphagia No Urinary Catheter Present No Hx Urinary Self Catheterization No Diabetes Yes HgbA1C 6.7 Date 06/11/19 Patient No Lactating No Marital Status Lives With spouse Patient Discharge Plan Description Return Home
== END 2019-07-13 10:54 | disposition home or self-care (01) ==
LOC: OR 14:11 → AC 07-13 11:00 → OR 07-15 07:13 → AC 07-15 07:17
PROVIDERS: Admitting Provider Orthopaedic Surgery Foot and Ankle Surgery; PCP Family Medicine; Visit Provider Orthopaedic Surgery Foot and Ankle Surgery
PROC: (CPT 25608; principal; 2019-07-12 12:45)
DX: S52.571A Other intraarticular fracture of lower end of right radius, initial encounter for closed fracture (principal); S52.611A Displaced fracture of right ulna styloid process, initial encounter for closed fracture; V00.211A Fall from ice-skates, initial encounter; Y93.21 Activity, ice skating; E11.9 Type 2 diabetes mellitus without complications; R06.02 Shortness of breath
CPT/HCPCS: 25608; 64450; 82962; G0378; J0690; J1885; J2250; J2405; J2704; J2765; J3010

== ENCOUNTER → 2019-09-06 06:57 | Outpatient (CLI) | payer MEDICARE, SELFPAY ==
[2019-07-12 20:19] VITALS: BMI 27.3
[2019-09-06 08:23] LABS: Hemoglobin A1C% w Est Avg Glu 6.4 % (4.0-6.0)
== END ==
PROVIDERS: PCP Family Medicine; Referring Provider Internal Medicine Endocrinology, Diabetes & Metabolism; Visit Provider Internal Medicine Endocrinology, Diabetes & Metabolism
DX: E11.9 Type 2 diabetes mellitus without complications (principal)
CPT/HCPCS: 36415; 83036

== ENCOUNTER → 2020-02-05 07:31 | Outpatient (CLI) | payer MEDICARE, SELFPAY ==
[2019-07-12 20:19] VITALS: BMI 27.3
[2020-02-05 08:32] LABS: Hemoglobin A1C% w Est Avg Glu 6.5 % (4.0-6.0)
[2020-02-05 08:35] LABS: Alanine Aminotransferase 49 IU/L (<35); Albumin 4.4 g/dL (3.5-5.0); Albumin Globulin Ratio 1.8 (1.0-2.8); Alkaline Phosphatase 86 U/L (38-126); Aspartate Aminotransferase 37 IU/L (14-36); BUN Creatinine Ratio 17.1 (6-22); Bilirubin Total 0.5 mg/dL (0.2-1.3); Blood Urea Nitrogen 14 mg/dL (7-17); Calcium 9.7 mg/dL (8.4-10.2); Carbon Dioxide 24 mmol/L (22-32); Chloride 107 mmol/L (98-107); Estimated Glomerular Filt Rate > 60.0 mL/min (>60); Globulin 2.5 g/dL (1.7-4.1); Glucose 126 mg/dL (80-110); HEMOLYSIS < 15 (0-50); Potassium 4.6 mmol/L (3.4-5.1); Sodium 138 mmol/L (137-145); Total Protein 6.9 g/dL (6.3-8.2)
[2020-02-05 08:49] LABS: Vitamin D 25 Hydroxy (D3) 38.6 ng/mL (30.0-100.0)
[2020-02-05 16:05] LABS: Creatinine Urine Random 17.8 mg/dL; Protein (Total) Urine Random 14 mg/dL (0-12); Protein Creatinine Ratio Urine 0.78 GRAM/24H
[2020-02-06 07:09] LABS: Parathyroid Hormone Int 59 pg/mL (15-65)
== END ==
PROVIDERS: PCP Family Medicine; Referring Provider Internal Medicine Endocrinology, Diabetes & Metabolism; Visit Provider Internal Medicine Endocrinology, Diabetes & Metabolism
DX: E11.9 Type 2 diabetes mellitus without complications (principal); M80.00XD Age-related osteoporosis with current pathological fracture, unspecified site, subsequent encounter for fracture with routine healing
CPT/HCPCS: 36415; 80053; 82306; 82570; 83036; 83970; 84156

== ENCOUNTER → 2020-03-19 12:19 | Outpatient (CLI) | payer MEDICARE, SELFPAY ==
[2019-07-12 20:19] VITALS: BMI 27.3
--- NOTE | 2020-03-19 12:32 | DI.MG.S_ITS ---
Patient Name: KRISTA CHAVEZ date: 1950 Sex: F Attending Physician: Daniel Indications: Date: 03/19/2020 12:28 At the request of: YANELIS LEIGH Procedure: MM screening mammo BI BILATERAL DIGITAL SCREENING MAMMOGRAM 3D/2D WITH CAD: 03/19/2020 CLINICAL: Routine screening. Comparison is made to exams dated: 11/12/2018 mammogram, 09/14/2017 mammogram, and 09/05/2017 mammogram - [facility]. There are scattered fibroglandular elements in both breasts. Current study was also evaluated with a Computer Aided Detection (CAD) system. There are benign calcifications in both breasts. No significant masses, calcifications, or other findings are seen in either breast. There has been no significant interval change. IMPRESSION: BENIGN There is no mammographic evidence of malignancy. A 1 year screening mammogram is recommended. This exam was interpreted at Station ID: [id number]. NOTE: For mammograms, a report in lay terms will be sent to the patient. Approximately 15% of breast malignancies will not be visualized mammographically. In the management of a palpable breast mass, a negative mammogram must not discourage biopsy of a clinically suspicious lesion. Electronically Signed By: Roman yo/beata:03/19/2020 14:54:13 letter sent: Normal Exam ACR BI-RADS Category 2: Benign Finding(s) 3342F
== END ==
PROVIDERS: PCP Family Medicine; Referring Provider Family Medicine; Visit Provider Family Medicine
DX: Z12.31 Encounter for screening mammogram for malignant neoplasm of breast (principal); Z78.0 Asymptomatic menopausal state; E11.9 Type 2 diabetes mellitus without complications; K92.9 Disease of digestive system, unspecified
CPT/HCPCS: 77063; 77067; 77080

== ENCOUNTER → 2020-06-01 07:22 | Outpatient (CLI) | payer MEDICARE, SELFPAY ==
[2019-07-12 20:19] VITALS: BMI 27.3
[2020-06-01 08:58] LABS: Hemoglobin A1C% w Est Avg Glu 7.2 % (4.0-6.0)
[2020-06-01 09:11] LABS: Alanine Aminotransferase 55 IU/L (<35); Albumin 4.5 g/dL (3.5-5.0); Albumin Globulin Ratio 1.5 (1.0-2.8); Alkaline Phosphatase 97 U/L (38-126); Aspartate Aminotransferase 39 IU/L (14-36); BUN Creatinine Ratio 22.8 (6-22); Bilirubin Total 0.6 mg/dL (0.2-1.3); Blood Urea Nitrogen 21 mg/dL (7-17); Calcium 9.5 mg/dL (8.4-10.2); Carbon Dioxide 29 mmol/L (22-32); Chloride 104 mmol/L (98-107); Estimated Glomerular Filt Rate > 60.0 mL/min (>60); Globulin 3.1 g/dL (1.7-4.1); Glucose 117 mg/dL (80-110); HEMOLYSIS < 15 (0-50); Potassium 4.4 mmol/L (3.4-5.1); Sodium 137 mmol/L (137-145); Total Protein 7.6 g/dL (6.3-8.2)
[2020-06-01 09:59] LABS: Free T4, Direct Thyroxine 0.89 ng/dL (0.78-2.19)
[2020-06-01 11:09] LABS: Creatinine Urine Random 108.9 mg/dL
[2020-06-01 11:16] LABS: Microalbumin Urine Random < 0.6 mg/dL (0-1.6)
[2020-06-01 18:01] LABS: Thyroid Stimulating Hormone 5.59 uIU/mL (0.47-4.68)
== END ==
PROVIDERS: PCP Family Medicine; Referring Provider Internal Medicine Endocrinology, Diabetes & Metabolism; Visit Provider Internal Medicine Endocrinology, Diabetes & Metabolism
DX: E78.2 Mixed hyperlipidemia (principal); E11.9 Type 2 diabetes mellitus without complications; R94.5 Abnormal results of liver function studies; E03.9 Hypothyroidism, unspecified
CPT/HCPCS: 36415; 80053; 82043; 82570; 83036; 84439; 84443

== ENCOUNTER → 2020-08-11 08:47 | Outpatient (CLI) | payer MEDICARE, SELFPAY ==
[2019-07-12 20:19] VITALS: BMI 27.3
[2020-08-11] MEDS: COVID-19 VACC #1, MRNA(MOD) 100 MCG/0.5 ML VIAL IM (08:52)
== END ==
PROVIDERS: PCP Family Medicine; Visit Provider Internal Medicine
DX: Z23 Encounter for immunization (principal)
CPT/HCPCS: 0011A; 91301

== ENCOUNTER → 2020-09-01 07:10 | Outpatient (CLI) | payer MEDICARE, SELFPAY ==
[2019-07-12 20:19] VITALS: BMI 27.3
[2020-09-01 09:10] LABS: Thyroid Stimulating Hormone 2.68 uIU/mL (0.47-4.68)
== END ==
PROVIDERS: PCP Family Medicine; Referring Provider Internal Medicine Endocrinology, Diabetes & Metabolism; Visit Provider Internal Medicine Endocrinology, Diabetes & Metabolism
DX: E11.9 Type 2 diabetes mellitus without complications (principal); E03.9 Hypothyroidism, unspecified
CPT/HCPCS: 36415; 83036; 84443

== ENCOUNTER → 2020-09-08 08:49 | Outpatient (CLI) | payer MEDICARE, SELFPAY ==
[2019-07-12 20:19] VITALS: BMI 27.3
[2020-09-08] MEDS: COVID-19 VACC #2, MRNA(MOD) 100 MCG/0.5 ML VIAL IM (08:56)
== END ==
PROVIDERS: PCP Family Medicine; Visit Provider Internal Medicine
DX: Z23 Encounter for immunization (principal)
CPT/HCPCS: 0012A; 91301

== ENCOUNTER → 2020-11-14 07:49 | Outpatient (CLI) | payer MEDICARE, SELFPAY ==
[2019-07-12 20:19] VITALS: BMI 27.3
== END ==
PROVIDERS: PCP Family Medicine; Referring Provider Internal Medicine Endocrinology, Diabetes & Metabolism; Visit Provider Internal Medicine Endocrinology, Diabetes & Metabolism
DX: E11.9 Type 2 diabetes mellitus without complications (principal)
CPT/HCPCS: 36415; 83036

== ENCOUNTER → 2021-04-20 12:00 | Outpatient (CLI) | payer MEDICARE, SELFPAY ==
[2019-07-12 20:19] VITALS: BMI 27.3
--- NOTE | 2021-04-20 | DI.MG.S_ITS ---
BILATERAL DIGITAL SCREENING MAMMOGRAM 3D/2D WITH CAD: 04/20/2021 CLINICAL: Routine screening. Comparison is made to exams dated: 03/19/2020 mammogram, 11/12/2018 mammogram, 09/05/2017 mammogram, and 09/14/2017 mammogram - [facility]. There are scattered fibroglandular elements in both breasts. Current study was also evaluated with a Computer Aided Detection (CAD) system. There are benign calcifications in both breasts. No significant masses, calcifications, or other findings are seen in either breast. There has been no significant interval change. IMPRESSION: BENIGN There is no mammographic evidence of malignancy. A 1 year screening mammogram is recommended. This exam was interpreted at Station ID: [id number]. NOTE: For mammograms, a report in lay terms will be sent to the patient. Approximately 15% of breast malignancies will not be visualized mammographically. In the management of a palpable breast mass, a negative mammogram must not discourage biopsy of a clinically suspicious lesion. Electronically Signed By: Roman yo/beata:04/20/2021 18:15:04 letter sent: Normal Exam ACR BI-RADS Category 2: Benign Finding(s) 3342F
== END ==
PROVIDERS: PCP Family Medicine; Referring Provider Family Medicine; Visit Provider Family Medicine
DX: Z12.31 Encounter for screening mammogram for malignant neoplasm of breast (principal)
CPT/HCPCS: 77063; 77067

== ENCOUNTER → 2021-05-26 07:11 | Outpatient (CLI) | payer MEDICARE, SELFPAY ==
[2019-07-12 20:19] VITALS: BMI 27.3
[2021-05-26 08:19] LABS: Hemoglobin A1C% w Est Avg Glu 7.1 % (4.0-6.0)
[2021-05-26 08:24] LABS: Alanine Aminotransferase 61 IU/L (<35); Albumin 4.3 g/dL (3.5-5.0); Albumin Globulin Ratio 1.8 (1.0-2.8); Alkaline Phosphatase 92 U/L (38-126); Aspartate Aminotransferase 37 IU/L (14-36); Bilirubin Total 0.7 mg/dL (0.2-1.3); Blood Urea Nitrogen 17 mg/dL (7-17); Calcium 9.6 mg/dL (8.4-10.2); Carbon Dioxide 29 mmol/L (22-32); Chloride 104 mmol/L (98-107); Cholesterol 174 mg/dL (140-199); Estimated Glomerular Filt Rate > 60.0 mL/min (>60); Globulin 2.4 g/dL (1.7-4.1); Glucose 166 mg/dL (80-110); HDL Cholesterol 68 mg/dL (40-60); HEMOLYSIS < 15 (0-50); LDL Cholesterol Calculated 69 mg/dL (<100); Potassium 4.7 mmol/L (3.4-5.1); Sodium 140 mmol/L (137-145); Total Protein 6.7 g/dL (6.3-8.2); Triglycerides 187 mg/dL (35-150)
[2021-05-26 08:39] LABS: Add Manual Diff / Slide Review NO; Basophils Absolute Auto 0 /uL (0-100); Basophils Percent Auto 0.7 % (0-2); Eosinophils Absolute Auto 100 /uL (0-450); Eosinophils Percent Auto 2.2 % (2-4); Hematocrit 38.3 % (36-46); Lymphocytes Absolute Auto 1600 /uL (1100-4500); Lymphocytes Percent Auto 36.9 % (25-40); Mean Corpuscular HGB Conc 33.9 % (30-36); Mean Corpuscular Hemoglobin 32.6 PG (26-34); Mean Corpuscular Volume 96.2 fL (80-100); Monocytes Absolute Auto 500 /uL (0-900); Monocytes Percent Auto 11.5 % (3-14); Neutrophils Absolute Auto 2100 /uL (1500-7000); Neutrophils Percent Auto 48.7 % (50-75); Platelet Count 253 X10^3/uL (150-400); Red Blood Cell Count 3.98 X10^6/uL (4.0-5.2); Red Cell Distribution Width 12.5 % (11.6-14.8); White Blood Cell Count 4.4 X10^3/uL (4.5-11.0)
[2021-05-26 08:46] LABS: TSH w/ Reflex to FT4 5.05 uIU/mL (0.47-4.68)
[2021-05-26 11:01] LABS: Appearance Urine UA CLEAR; Bilirubin Urine UA NEGATIVE (NEGATIVE); Color Urine UA YELLOW; Glucose Urine UA NEGATIVE (Negative); Ketones Urine UA NEGATIVE (NEGATIVE); Leukocyte Esterase Urine UA 1+ (NEGATIVE); Nitrite Urine UA NEGATIVE (Negative); Occult Blood Urine UA TRACE-LYSED (Negative); Protein Urine UA NEGATIVE (Negative); Urobilinogen Urine UA 0.2 E.U./dL (0.2)
[2021-05-26 11:03] LABS: pH Urine UA 6.5 (4.5-8.0)
[2021-05-26 11:14] LABS: RBC Urine 0-1/HPF (0-5/HPF)
[2021-05-26 11:15] LABS: Amorphous Sediment Urine 1+; Bacteria Urine Few (2-10); Culture Indicated Urine Specimen Cultured; Squamous Epithelial Cell Urine 0-1 /HPF (0-5/HPF); Transitional Epi Cells Urine 0-1/HPF (0-5/HPF); WBC Urine 10-30/HPF (0-5/HPF)
== END ==
PROVIDERS: PCP Family Medicine; Referring Provider Family Medicine; Visit Provider Family Medicine
DX: E03.9 Hypothyroidism, unspecified (principal); E11.9 Type 2 diabetes mellitus without complications; E78.5 Hyperlipidemia, unspecified; I48.0 Paroxysmal atrial fibrillation
CPT/HCPCS: 36415; 80053; 80061; 81001; 83036; 84439; 84443; 85025; 87077; 87086; 87147

== ENCOUNTER → 2021-08-03 07:17 | Outpatient (CLI) | payer MEDICARE, SELFPAY ==
[2019-07-12 20:19] VITALS: BMI 27.3
[2021-08-03 09:31] LABS: Alanine Aminotransferase 59 IU/L (<35); Albumin 4.3 g/dL (3.5-5.0); Albumin Globulin Ratio 1.8 (1.0-2.8); Alkaline Phosphatase 92 U/L (38-126); Aspartate Aminotransferase 41 IU/L (14-36); BUN Creatinine Ratio 20.2 (6-22); Bilirubin Total 0.5 mg/dL (0.2-1.3); Blood Urea Nitrogen 17 mg/dL (7-17); Calcium 9.7 mg/dL (8.4-10.2); Carbon Dioxide 30 mmol/L (22-32); Chloride 106 mmol/L (98-107); Cholesterol 185 mg/dL (140-199); Estimated Glomerular Filt Rate > 60.0 mL/min (>60); Globulin 2.4 g/dL (1.7-4.1); Glucose 147 mg/dL (80-110); HDL Cholesterol 75 mg/dL (40-60); HEMOLYSIS < 15 (0-50); LDL Cholesterol Calculated 79 mg/dL (<100); Sodium 141 mmol/L (137-145); Total Protein 6.7 g/dL (6.3-8.2); Triglycerides 155 mg/dL (35-150)
== END ==
PROVIDERS: PCP Family Medicine; Referring Provider Internal Medicine Cardiovascular Disease; Visit Provider Internal Medicine Cardiovascular Disease
DX: R73.09 Other abnormal glucose (principal); E78.2 Mixed hyperlipidemia
CPT/HCPCS: 36415; 80053; 80061; 83036

== ENCOUNTER → 2021-09-28 07:47 | Outpatient (CLI) | payer MEDICARE, SELFPAY ==
[2019-07-12 20:19] VITALS: BMI 27.3
[2021-09-28 09:10] LABS: Hemoglobin A1C% w Est Avg Glu 7.7 % (4.0-6.0)
[2021-09-28 09:16] LABS: Alanine Aminotransferase 60 IU/L (<35); Albumin Globulin Ratio 1.7 (1.0-2.8); Alkaline Phosphatase 92 U/L (38-126); Aspartate Aminotransferase 42 IU/L (14-36); BUN Creatinine Ratio 16.9 (6-22); Bilirubin Total 0.6 mg/dL (0.2-1.3); Blood Urea Nitrogen 15 mg/dL (7-17); Calcium 9.9 mg/dL (8.4-10.2); Carbon Dioxide 28 mmol/L (22-32); Chloride 101 mmol/L (98-107); Estimated Glomerular Filt Rate > 60.0 mL/min (>60); Glucose 150 mg/dL (80-110); HEMOLYSIS < 15 (0-50); Potassium 4.3 mmol/L (3.4-5.1); Sodium 140 mmol/L (137-145)
[2021-09-28 09:46] LABS: TSH w/ Reflex to FT4 0.31 uIU/mL (0.47-4.68)
[2021-09-28 12:54] LABS: Free T4, Direct Thyroxine 1.35 ng/dL (0.78-2.19)
== END ==
PROVIDERS: PCP Family Medicine; Referring Provider Family Medicine; Visit Provider Family Medicine
DX: E11.9 Type 2 diabetes mellitus without complications (principal); E03.9 Hypothyroidism, unspecified; K76.0 Fatty (change of) liver, not elsewhere classified
CPT/HCPCS: 36415; 80053; 83036; 84439; 84443

== ENCOUNTER → 2021-10-15 07:32 | Outpatient (CLI) | payer MEDICARE, SELFPAY ==
[2019-07-12 20:19] VITALS: BMI 27.3
[2021-10-07 09:48] VITALS: BMI 27.3
--- NOTE | 2021-10-15 | DI.US.S_ITS ---
PROCEDURE: US ABDOMEN COMPLETE INDICATIONS: ABNORMAL LFTS TECHNIQUE: Real-time scanning was performed of the abdominal and retroperitoneal organs, with image documentation. COMPARISON: None. FINDINGS: Liver: Increased echogenicity of the liver. No mass. Gallbladder: Cholecystectomy. Biliary ducts: Normal caliber. Pancreas: Visualized portions of the pancreas are sonographically normal. Spleen: Spleen is normal in size and homogeneous in echotexture. Kidneys: Non-obstructing 1.6 cm stone in the inferior left kidney. Otherwise normal kidneys. Aorta: Visualized aorta is normal in caliber at less than 3 cm. Iliacs: Proximal common iliac arteries are normal in caliber at less than 2.5 cm. IVC: Intrahepatic inferior vena cava is patent. Miscellaneous: No free abdominal fluid. IMPRESSION: Hepatic steatosis. Non-obstructing left renal calculus. Dictated by: Gigi Vera M.D. on 10/15/2021 at 8:33 Approved by: Gigi Vera M.D. on 10/15/2021 at 8:37
== END ==
PROVIDERS: PCP Family Medicine; Referring Provider Internal Medicine Cardiovascular Disease; Visit Provider Internal Medicine Cardiovascular Disease
DX: K76.0 Fatty (change of) liver, not elsewhere classified (principal); N20.0 Calculus of kidney; R79.89 Other specified abnormal findings of blood chemistry
CPT/HCPCS: 76700

== ENCOUNTER → 2022-01-18 07:19 | Outpatient (CLI) | payer MEDICARE, SELFPAY ==
[2021-10-07 09:48] VITALS: BMI 27.3
[2022-01-18 08:34] LABS: Add Manual Diff / Slide Review NO; Basophils Absolute Auto 0 /uL (0-100); Basophils Percent Auto 0.7 % (0-2); Eosinophils Absolute Auto 100 /uL (0-450); Eosinophils Percent Auto 1.8 % (2-4); Hematocrit 39.7 % (36-46); Hemoglobin 13.6 g/dL (12.0-16.0); Lymphocytes Absolute Auto 2100 /uL (1100-4500); Lymphocytes Percent Auto 43.9 % (25-40); Mean Corpuscular HGB Conc 34.2 % (30-36); Mean Corpuscular Hemoglobin 32.7 PG (26-34); Mean Corpuscular Volume 95.5 fL (80-100); Monocytes Absolute Auto 500 /uL (0-900); Monocytes Percent Auto 10.5 % (3-14); Neutrophils Absolute Auto 2000 /uL (1500-7000); Neutrophils Percent Auto 43.1 % (50-75); Platelet Count 255 X10^3/uL (150-400); Red Blood Cell Count 4.16 X10^6/uL (4.0-5.2); Red Cell Distribution Width 12.8 % (11.6-14.8); White Blood Cell Count 4.7 X10^3/uL (4.5-11.0)
[2022-01-18 08:35] LABS: Hemoglobin A1C% w Est Avg Glu 7.7 % (4.0-6.0)
[2022-01-18 09:16] LABS: Alanine Aminotransferase 42 IU/L (<35); Albumin 4.5 g/dL (3.5-5.0); Albumin Globulin Ratio 1.8 (1.0-2.8); Alkaline Phosphatase 87 U/L (38-126); Aspartate Aminotransferase 32 IU/L (14-36); BUN Creatinine Ratio 21.4 (6-22); Bilirubin Total 0.6 mg/dL (0.2-1.3); Blood Urea Nitrogen 18 mg/dL (7-17); Calcium 9.6 mg/dL (8.4-10.2); Carbon Dioxide 29 mmol/L (22-32); Chloride 103 mmol/L (98-107); Estimated Glomerular Filt Rate > 60 mL/min (>60); Globulin 2.5 g/dL (1.7-4.1); Glucose 135 mg/dL (80-110); HEMOLYSIS < 15 (0-50); Potassium 4.8 mmol/L (3.4-5.1); Sodium 139 mmol/L (137-145)
[2022-01-18 09:39] LABS: TSH w/ Reflex to FT4 0.47 uIU/mL (0.47-4.68)
== END ==
PROVIDERS: PCP Family Medicine; Referring Provider Family Medicine; Visit Provider Family Medicine
DX: E03.9 Hypothyroidism, unspecified (principal); E11.9 Type 2 diabetes mellitus without complications; R74.01 Elevation of levels of liver transaminase levels; E70.9 Disorder of aromatic amino-acid metabolism, unspecified
CPT/HCPCS: 36415; 80053; 83036; 84443; 85025

== ENCOUNTER → 2022-04-04 06:57 | Outpatient (CLI) | payer MEDICARE, SELFPAY ==
[2021-10-07 09:48] VITALS: BMI 27.3
[2022-04-04 07:48] LABS: Hemoglobin A1C% w Est Avg Glu 7.3 % (4.0-6.0)
[2022-04-04 07:52] LABS: Alanine Aminotransferase 48 IU/L (<35); Albumin 4.3 g/dL (3.5-5.0); Albumin Globulin Ratio 1.5 (1.0-2.8); Alkaline Phosphatase 79 U/L (38-126); Aspartate Aminotransferase 34 IU/L (14-36); BUN Creatinine Ratio 18.5 (6-22); Bilirubin Total 0.7 mg/dL (0.2-1.3); Blood Urea Nitrogen 17 mg/dL (7-17); Calcium 9.9 mg/dL (8.4-10.2); Carbon Dioxide 27 mmol/L (22-32); Chloride 104 mmol/L (98-107); Estimated Glomerular Filt Rate > 60 mL/min (>60); Globulin 2.8 g/dL (1.7-4.1); Glucose 131 mg/dL (80-110); HEMOLYSIS < 15 (0-50); Potassium 4.8 mmol/L (3.4-5.1); Sodium 139 mmol/L (137-145); Total Protein 7.1 g/dL (6.3-8.2)
== END ==
PROVIDERS: PCP Family Medicine; Referring Provider Family Medicine; Visit Provider Family Medicine
DX: E11.9 Type 2 diabetes mellitus without complications (principal); E03.9 Hypothyroidism, unspecified; E78.2 Mixed hyperlipidemia
CPT/HCPCS: 36415; 80053; 83036

== ENCOUNTER → 2022-06-13 15:13 | Outpatient (CLI) | payer MEDICARE, SELFPAY ==
[2021-10-07 09:48] VITALS: BMI 27.3
--- NOTE | 2022-06-13 15:15 | DI.MG.S_ITS ---
BILATERAL DIGITAL SCREENING MAMMOGRAM 3D/2D WITH CAD: 06/13/2022 CLINICAL: Routine screening. Comparison is made to exams dated: 04/20/2021 mammogram, 03/19/2020 mammogram, and 11/12/2018 mammogram - [facility]. There are scattered areas of fibroglandular density in both breasts (category b / 25%-50% glandular tissue). Current study was also evaluated with a Computer Aided Detection (CAD) system. There are benign calcifications in both breasts. No significant masses, calcifications, or other findings are seen in either breast. There has been no significant interval change. IMPRESSION: BENIGN There is no mammographic evidence of malignancy. A 1 year screening mammogram is recommended. Based on the Tyrer Cuzick model (a risk assessment model) the patient's lifetime risk is 3.4% and her 10 year risk is 2.3%. According to the ACR, ACS, and NCCN guidelines, an annual breast MRI exam along with mammogram is recommended if the patient's lifetime risk is 20% or greater. This exam was interpreted at Station ID: [id number]. NOTE: For mammograms, a report in lay terms will be sent to the patient. Approximately 15% of breast malignancies will not be visualized mammographically. In the management of a palpable breast mass, a negative mammogram must not discourage biopsy of a clinically suspicious lesion. Electronically Signed By: Anand bess/beata:06/13/2022 21:19:59 letter sent: Normal Exam ACR BI-RADS Category 2: Benign Finding(s) 3342F
== END ==
PROVIDERS: PCP Family Medicine; Referring Provider Family Medicine; Visit Provider Family Medicine
DX: Z12.31 Encounter for screening mammogram for malignant neoplasm of breast (principal)
CPT/HCPCS: 77063; 77067

== ENCOUNTER → 2022-07-09 07:46 | Outpatient (CLI) | payer MEDICARE, SELFPAY ==
[2021-10-07 09:48] VITALS: BMI 27.3
[2022-07-09 09:09] LABS: Alanine Aminotransferase 56 IU/L (<35); Albumin 4.3 g/dL (3.5-5.0); Albumin Globulin Ratio 1.7 (1.0-2.8); Alkaline Phosphatase 90 U/L (38-126); Aspartate Aminotransferase 37 IU/L (14-36); BUN Creatinine Ratio 19.5 (6-22); Bilirubin Total 0.6 mg/dL (0.2-1.3); Blood Urea Nitrogen 15 mg/dL (7-17); Calcium 9.5 mg/dL (8.4-10.2); Carbon Dioxide 28 mmol/L (22-32); Chloride 101 mmol/L (98-107); Estimated Glomerular Filt Rate > 60 mL/min (>60); Globulin 2.6 g/dL (1.7-4.1); Glucose 127 mg/dL (80-110); HEMOLYSIS < 15 (0-50); Potassium 4.4 mmol/L (3.4-5.1); Sodium 137 mmol/L (137-145); Total Protein 6.9 g/dL (6.3-8.2)
[2022-07-09 09:11] LABS: Hemoglobin A1C% w Est Avg Glu 7.8 % (4.0-6.0)
[2022-07-09 11:57] LABS: Creatinine Urine Random 131.6 mg/dL
[2022-07-09 12:01] LABS: Microalbumi Creatinin Ratio Ur 8.3 ug/mg CR (<30); Microalbumin Urine Random 1.1 mg/dL (0-1.6)
== END ==
PROVIDERS: PCP Family Medicine; Referring Provider Family Medicine; Visit Provider Family Medicine
DX: E11.9 Type 2 diabetes mellitus without complications (principal)
CPT/HCPCS: 36415; 80053; 82043; 82570; 83036

== ENCOUNTER → 2022-10-20 07:34 | Outpatient (CLI) | payer MEDICARE, SELFPAY ==
[2021-10-07 09:48] VITALS: BMI 27.3
[2022-10-20 10:21] LABS: Alanine Aminotransferase 63 IU/L (<35); Albumin 4.2 g/dL (3.5-5.0); Albumin Globulin Ratio 1.5 (1.0-2.8); Alkaline Phosphatase 88 U/L (38-126); Aspartate Aminotransferase 39 IU/L (14-36); BUN Creatinine Ratio 23.1 (6-22); Bilirubin Total 0.7 mg/dL (0.2-1.3); Blood Urea Nitrogen 18 mg/dL (7-17); Calcium 9.4 mg/dL (8.4-10.2); Carbon Dioxide 29 mmol/L (22-32); Chloride 102 mmol/L (98-107); Estimated Glomerular Filt Rate > 60 mL/min (>60); Globulin 2.8 g/dL (1.7-4.1); Glucose 134 mg/dL (80-110); HEMOLYSIS < 15 (0-50); Potassium 4.5 mmol/L (3.4-5.1); Sodium 138 mmol/L (137-145)
[2022-10-21 06:04] LABS: Labcorp Hemoglobin (Hb) A1c 7.9 % (4.8-5.6)
== END ==
PROVIDERS: PCP Family Medicine; Referring Provider Family Medicine; Visit Provider Family Medicine
DX: R74.01 Elevation of levels of liver transaminase levels (principal); E11.9 Type 2 diabetes mellitus without complications
CPT/HCPCS: 36415; 80053; 83036

== ENCOUNTER → 2023-01-20 07:05 | Outpatient (CLI) | payer MEDICARE, SELFPAY ==
[2021-10-07 09:48] VITALS: BMI 27.3
[2023-01-20 08:48] LABS: Alanine Aminotransferase 57 IU/L (<35); Albumin 4.2 g/dL (3.5-5.0); Albumin Globulin Ratio 1.7 (1.0-2.8); Alkaline Phosphatase 97 U/L (38-126); Aspartate Aminotransferase 34 IU/L (14-36); Bilirubin Total 0.6 mg/dL (0.2-1.3); Blood Urea Nitrogen 18 mg/dL (7-17); Calcium 9.6 mg/dL (8.4-10.2); Carbon Dioxide 27 mmol/L (22-32); Chloride 104 mmol/L (98-107); Estimated Glomerular Filt Rate > 60 mL/min (>60); Globulin 2.5 g/dL (1.7-4.1); Glucose 158 mg/dL (80-110); HEMOLYSIS < 15 (0-50); Potassium 4.8 mmol/L (3.4-5.1); Sodium 138 mmol/L (137-145); Total Protein 6.7 g/dL (6.3-8.2)
[2023-01-20 09:19] LABS: TSH w/ Reflex to FT4 1.21 uIU/mL (0.47-4.68)
[2023-01-21 08:39] LABS: x Labcorp Estim. Avg Glu (eAG) 192 mg/dL (.); x Labcorp Hemoglobin A1c 8.3 % (4.8-5.6)
== END ==
PROVIDERS: PCP Family Medicine; Referring Provider Physician Assistant; Visit Provider Physician Assistant
DX: E03.9 Hypothyroidism, unspecified; R74.01 Elevation of levels of liver transaminase levels; E11.9 Type 2 diabetes mellitus without complications
CPT/HCPCS: 36415; 80053; 83036; 84443

== ENCOUNTER → 2023-05-16 07:37 | Outpatient (CLI) | payer MEDICARE, SELFPAY ==
[2021-10-07 09:48] VITALS: BMI 27.3
[2023-05-16 08:29] LABS: Hemoglobin A1C% w Est Avg Glu 8.6 % (4.0-6.0)
== END ==
PROVIDERS: PCP Family Medicine; Referring Provider Physician Assistant; Visit Provider Physician Assistant
DX: E11.65 Type 2 diabetes mellitus with hyperglycemia (principal)
CPT/HCPCS: 36415; 83036

== ENCOUNTER → 2023-06-21 14:18 | Outpatient (CLI) | payer MEDICARE, SELFPAY ==
[2021-10-07 09:48] VITALS: BMI 27.3
--- NOTE | 2023-06-21 14:20 | DI.RAD.S_ITS ---
Bone Density Report Name: KRISTA CHAVEZ Age: 73 Sex: Female Ethnicity: White Date of : 1950 Indication: postmenopausal; screening for osteoporosis; prior fracture; Referring Provider: ALPHONSO SPENCER Study: Bone densitometry was performed. Exam Date: June 21, 2023 Accession number: [id number] Bone Density: Region BMD T-score Z-score Classification AP Spine(L1, L2, L3) 1.009 -0.1 2.1 Normal Femoral Neck (Left) 0.805 -0.4 1.5 Normal Total Hip (Left) 0.968 0.2 1.8 Normal Femoral Neck (Right) 0.810 -0.4 1.6 Normal Total Hip (Right) 0.989 0.4 2.0 Normal Total Hip Mean 0.979 0.3 1.9 Normal World Health Organization criteria for BMD impression classify patients as: Normal (T-score at or above -1.0), Osteopenia (T-score between -1.0 and -2.5), or Osteoporosis (T-score at or below -2.5). 10-year Fracture Risk: FRAX not reported because: All T-scores for Spine Total, Hip Total, Femoral Neck at or above -1.0 Prior hip or vertebral fracture Previous Exams: -- Region Exam Age BMD T-score BMD Change BMD Change Date g/cm2 vs Baseline vs Previous -- AP Spine (L1-L3) 06/21/2023 73 1.009 -0.1 -0.107 (-9.6%)# -0.107 (-9.6%)# 03/19/2020 70 1.116 0.9 Total Hip(Left) 06/21/2023 73 0.968 0.2 -0.026 (-2.6%)# -0.026 (-2.6%)# 03/19/2020 70 0.994 0.4 Total Hip(Right) 06/21/2023 73 0.989 0.4 -0.028 (-2.8%)# -0.028 (-2.8%)# 03/19/2020 70 1.018 0.6 -- *Denotes significance at 95% confidence level, LSC for AP Spine = 0.022 g/cm2, LSC for Total Hip = 0.027 g/cm2 # Denotes dissimilar scan types or analysis methods Impression: The patient has normal bone mass. The patient has risk factors, including: previous fracture. No significant bone loss was observed. Discussion: INCREASED RISK OF FRACTURE DUE TO HISTORY OF FRACTURE. The patient's previous fracture puts the patient at high risk of a future fracture. In untreated patients, the risk of osteoporotic fracture increases approximately two-fold for each 1.0 SD decrease in T-score. Low bone density is not the only risk factor for fracture; also consider factors such as patient's age, frailty or poor health, risk of falling, risk of injury, previous osteoporotic fracture, family history of osteoporosis, cigarette smoking, low body weight, etc. Not everyone with a low trauma fracture has osteoporosis; osteomalacia and other metabolic bone disorders should also be considered. Patients who have osteoporosis should be evaluated for specific diseases and conditions (secondary causes) that may cause or contribute to bone loss and fracture risk. National Osteoporosis Foundation (NOF) recommends pharmacologic intervention for patients with a prior hip or vertebral fracture regardless of BMD T-score. The patient should follow a healthful lifestyle (good nutrition with adequate calcium and vitamin D, and appropriate weight-bearing exercise). Follow-Up: Consider a repeat BMD and Vertebral Fracture Assessment (VFA) exam in 2 years or sooner if medically necessary, to reassess this patient's status. Reported by: ALIREZA TOM M.D. on 06/21/2023 2:38:00 PM.
--- NOTE | 2023-06-21 14:20 | DI.MG.S_ITS ---
BILATERAL DIGITAL SCREENING MAMMOGRAM 3D/2D WITH CAD: 06/21/2023 CLINICAL: Routine screening. Comparison is made to exams dated: 06/13/2022 mammogram, 04/20/2021 mammogram, and 03/19/2020 mammogram - [facility]. Both breasts are almost entirely fatty (category a/<25% glandular tissue). Current study was also evaluated with a Computer Aided Detection (CAD) system. There are benign calcifications in the left breast. No significant masses, calcifications, or other findings are seen in either breast. There has been no significant interval change. IMPRESSION: BENIGN There is no mammographic evidence of malignancy. A 1 year screening mammogram is recommended. Based on the Tyrer Cuzick model (a risk assessment model) the patient's lifetime risk is 2.1% and her 10 year risk is 1.6%. According to the ACR, ACS, and NCCN guidelines, an annual breast MRI exam along with mammogram is recommended if the patient's lifetime risk is 20% or greater. This exam was interpreted at Station ID: [id number]. NOTE: For mammograms, a report in lay terms will be sent to the patient. Approximately 15% of breast malignancies will not be visualized mammographically. In the management of a palpable breast mass, a negative mammogram must not discourage biopsy of a clinically suspicious lesion. Electronically Signed By: Tigist lopez/beata:06/21/2023 17:13:11 letter sent: Normal Exam ACR BI-RADS Category 2: Benign Finding(s) 3342F
== END ==
PROVIDERS: PCP Family Medicine; Referring Provider Family Medicine; Visit Provider Family Medicine
DX: Z12.31 Encounter for screening mammogram for malignant neoplasm of breast (principal); Z78.0 Asymptomatic menopausal state; Z13.820 Encounter for screening for osteoporosis
CPT/HCPCS: 77063; 77067; 77080

== ENCOUNTER → 2023-08-16 06:54 | Outpatient (CLI) | payer MEDICARE, SELFPAY ==
[2021-10-07 09:48] VITALS: BMI 27.3
[2023-08-16 07:53] LABS: Hemoglobin A1C% w Est Avg Glu 7.4 % (4.0-6.0)
[2023-08-16 08:06] LABS: Alanine Aminotransferase 57 IU/L (<35); Albumin 4.4 g/dL (3.5-5.0); Albumin Globulin Ratio 1.6 (1.0-2.8); Alkaline Phosphatase 88 U/L (38-126); Aspartate Aminotransferase 40 IU/L (14-36); BUN Creatinine Ratio 18.5 (6-22); Bilirubin Total 0.7 mg/dL (0.2-1.3); Blood Urea Nitrogen 15 mg/dL (7-17); Calcium 10.2 mg/dL (8.4-10.2); Carbon Dioxide 27 mmol/L (22-32); Chloride 103 mmol/L (98-107); Cholesterol 175 mg/dL (140-199); Creatinine Urine Random 99.2 mg/dL; Estimated Glomerular Filt Rate > 60 mL/min (>60); Globulin 2.7 g/dL (1.7-4.1); Glucose 132 mg/dL (80-110); HDL Cholesterol 75 mg/dL (40-60); HEMOLYSIS < 15 (0-50); LDL Cholesterol Calculated 75 mg/dL (<100); Potassium 4.6 mmol/L (3.4-5.1); Sodium 138 mmol/L (137-145); Total Protein 7.1 g/dL (6.3-8.2); Triglycerides 127 mg/dL (35-150)
[2023-08-16 08:10] LABS: Microalbumin Urine Random 0.7 mg/dL (0-1.6)
== END ==
PROVIDERS: PCP Family Medicine; Referring Provider Internal Medicine Endocrinology, Diabetes & Metabolism; Visit Provider Internal Medicine Endocrinology, Diabetes & Metabolism
DX: E11.9 Type 2 diabetes mellitus without complications (principal)
CPT/HCPCS: 36415; 80053; 80061; 82043; 82570; 83036; 83525; 84681

== ENCOUNTER → 2023-10-17 08:41 | Outpatient (CLI) | payer MEDICARE, SELFPAY ==
[2021-10-07 09:48] VITALS: BMI 27.3
--- NOTE | 2023-10-17 08:42 | DI.US.S_ITS ---
PROCEDURE: US ABDOMEN LIMITED INDICATIONS: ELEVATED LIVER ENZYMES TECHNIQUE: Real-time scanning was performed of the abdominal and retroperitoneal organs, with image documentation. COMPARISON: [facility], US, US ABDOMEN COMPLETE, 10/15/2021, 7:35. FINDINGS: Liver: Liver is normal in size and increased in echogenicity. Gallbladder: Surgically absent. Biliary ducts: Intrahepatic bile ducts are prominent. Extrahepatic bile duct caliber measures 7.1 mm. Normal is 6-7 mm or less in diameter, or 10 mm or less post-cholecystectomy. Pancreas: Visualized portions of the pancreas are sonographically normal. Pancreatic tail is not well seen. Miscellaneous: No free abdominal fluid. IMPRESSION: 1. Liver is increased in echogenicity, most consistent with hepatic steatosis. 2. Status post cholecystectomy. Dictated by: Keaton Johnson M.D. on 10/17/2023 at 10:46 Approved by: Keaton Johnson M.D. on 10/17/2023 at 10:50
== END ==
LOC: US 08:42
PROVIDERS: PCP Family Medicine; Referring Provider Family Medicine; Visit Provider Family Medicine
DX: R74.8 Abnormal levels of other serum enzymes (principal); Z90.49 Acquired absence of other specified parts of digestive tract
CPT/HCPCS: 76705

== ENCOUNTER → 2023-10-25 06:52 | Outpatient (CLI) | payer MEDICARE, SELFPAY ==
[2021-10-07 09:48] VITALS: BMI 27.3
[2023-10-25 09:25] LABS: Alanine Aminotransferase 47 IU/L (<35); Albumin 4.2 g/dL (3.5-5.0); Albumin Globulin Ratio 1.6 (1.0-2.8); Alkaline Phosphatase 91 U/L (38-126); Aspartate Aminotransferase 35 IU/L (14-36); BUN Creatinine Ratio 20.2 (6-22); Bilirubin Total 0.7 mg/dL (0.2-1.3); Blood Urea Nitrogen 18 mg/dL (7-17); Calcium 9.8 mg/dL (8.4-10.2); Carbon Dioxide 28 mmol/L (22-32); Chloride 107 mmol/L (98-107); Cholesterol 180 mg/dL (140-199); Estimated Glomerular Filt Rate > 60 mL/min (>60); Globulin 2.7 g/dL (1.7-4.1); Glucose 118 mg/dL (80-110); HDL Cholesterol 73 mg/dL (40-60); HEMOLYSIS < 15 (0-50); LDL Cholesterol Calculated 78 mg/dL (<100); Potassium 4.6 mmol/L (3.4-5.1); Sodium 138 mmol/L (137-145); Total Protein 6.9 g/dL (6.3-8.2); Triglycerides 147 mg/dL (35-150)
== END ==
LOC: LAB 06:54
PROVIDERS: PCP Family Medicine; Referring Provider Internal Medicine Cardiovascular Disease; Visit Provider Internal Medicine Cardiovascular Disease
DX: E78.2 Mixed hyperlipidemia (principal)
CPT/HCPCS: 36415; 80053; 80061

== ENCOUNTER 2023-11-09 07:29 | Day surgery (SDC) | payer MEDICARE, SELFPAY ==
[2021-10-07 09:48] VITALS: BMI 27.3
--- NOTE | 2023-11-09 | PATH_ITS ---
[facility] Accession Number: [id number] No. of containers..02 Tissue . 01 Material submitted: . PART A: colon - ASCENDING COLON POLYPS PART B: colon - SIGMOID COLON POLYPS . 01 Diagnosis: Part A: ASCENDING COLON POLYPS: Tubular adenomas. . Part B: SIGMOID COLON POLYPS: 1. Tubular adenoma. 2. Colonic mucosa with benign lymphoid aggregate. STO 11/15/2023 1501 Local . 01 Electronically signed: . Matthew Naqvi MD, Pathologist NPI- [id number] . 01 Gross description: . Part A: ASCENDING COLON POLYPS: Received in formalin are 4 fragment(s) of morin, soft tissue measuring 0.3 x 0.3 x 0.2 cm to 0.7 x 0.5 x 0.4 cm submitted entirely in 1 cassette(s) . Part B: SIGMOID COLON POLYPS: Received in formalin are 2 fragment(s) of morin, soft tissue measuring 0.3 x 0.3 x 0.3 cm to 0.4 x 0.4 x 0.3 cm submitted entirely in 1 cassette(s) /ELLEN 11/15/2023 1501 Local . 01 Pathologist provided ICD-10: D12.2, D12.5 . 01 CPT . 468512, [id number] Specimen Comment: A courtesy copy of this report has been sent to [phone] Performed at: 01 [facility] [address] [place] [address], [place], [place] [id number] MD Matthew Naqvi MD Phone: [phone]
[2023-11-09 07:50] VITALS: BP 128/76; PULSE 63; RESP 16; TEMP 36.6; O2SAT 98
[2023-11-09] MEDS: LACTATED RINGERS 1,000 ML 42 ML IV (08:12)
--- NOTE | 2023-11-09 08:19 | PM.HP.1 ---
History of Present Illness History of Present Illness Date Patient Seen: 11/09/23 Time Patient Seen: 08:19 [place] [facility] [place]: Gini is a 73-year-old woman who is here for colonoscopy. Her last colonoscopy was a proximally 2006. No first-degree relatives with colon cancer. [facility] Medical History Plantar fasciitis Arthritis of foot Insertional Achilles tendinopathy Fatty liver Right wrist fracture (~06/2019) Paroxysmal atrial fibrillation Type 2 diabetes mellitus Hypothyroidism Gastritis Hyperlipidemia Surgical History H/O lithotripsy History of cholecystectomy H/O oophorectomy H/O nasal septoplasty S/P breast lumpectomy Rectal fistula Family History Mother Diabetes mellitus Tobacco abuse Social History marital status: number of children: 2 household members: spouse lives independently: Yes education level: college occupational status: other Smoking Status: Never smoker alcohol intake: current substance use type: does not use Meds Home Medications and Allergies Home Medications Medication Instructions Recorded Confirmed Type ascorbic acid (vitamin C) 1,000 mg 1 gram PO DAILY 04/16/18 11/09/23 History tablet atorvastatin 20 mg tablet 20 mg PO DAILY 04/16/18 11/09/23 History cholecalciferol (vitamin D3) 125 5,000 unit PO QWEEK 04/16/18 11/09/23 History mcg (5,000 unit) capsule chromium picolinate 200 mcg capsule 400 mcg PO DAILY 04/16/18 11/09/23 History coenzyme Q10 300 mg capsule (Co 300 mg PO DAILY 04/16/18 11/09/23 History Q-10) multivitamin (Multiple Vitamins 1 tab PO DAILY 04/16/18 11/09/23 History tablet) omega 2-blo-ngw-fish oil 1,000 mg 1 cap PO DAILY 04/16/18 11/09/23 History (120 mg-180 mg) capsule (Fish Oil) vitamin B complex (B 1 tab PO DAILY 04/16/18 11/09/23 History Complex-Vitamin B12 tablet) lancets (OneTouch UltraSoft #100 ea 10/05/20 07/31/23 Rx Lancets) bisoprolol fumarate 5 mg tablet 5 mg PO DAILY #30 tabs 10/07/21 11/09/23 Rx blood sugar diagnostic (OneTouch #50 strips 01/09/23 07/31/23 Rx Ultra Test strips) levothyroxine 75 mcg tablet See Rx Instructions .Route 05/03/23 11/09/23 Rx .COMPLEX #90 tabs valacyclovir 500 mg tablet 500 mg PO DAILY #90 tabs 05/03/23 11/09/23 Rx glimepiride 2 mg tablet 2 mg PO BID 07/31/23 11/09/23 History dulaglutide 0.75 mg/0.5 mL See Rx Instructions .Route 09/21/23 11/09/23 Rx subcutaneous pen injector .COMPLEX #6 mL (Trulicity) sodium,potassium,mag sulfates 17.5 See Rx Instructions PO .COMPLEX 10/06/23 Rx gram-3.13 gram-1.6 gram oral soln #354 mL (Suprep Bowel Prep Kit) Allergies Allergy/AdvReac Type Severity Reaction Status Date / Time No Known Drug Allergies Allergy Verified 11/09/23 07:42 Exam Vital Signs (past 8 hours): - 11/09/23 07:50 Temperature 97.9 F Pulse Rate 63 Respiratory Rate 16 Blood Pressure 128/76 Pulse Oximetry 98 Oxygen Delivery Method Room Air Oxygen Flow Rate 0 Oxygen Delivery Method Room Air Oxygen Flow Rate 0 Const General: healthy appearing Assessment & Plan Assessment and plan (1) Colon cancer screening: Status: Acute Plan We reviewed the risks and benefits of colonoscopy for colon cancer screening and she would like to proceed.
--- NOTE | 2023-11-09 08:59 | PM.OP.COLON ---
Operative Date/Time/Diagnoses Date of procedure: 11/09/23 Time of procedure: 08:59 Pre-op diagnosis: Colon cancer screening Post-op diagnosis: same Procedure & Clinicians Study performed: Colonoscopy Same procedure as scheduled: Yes Surgeon: Carlos Barahona Procedure Notes Procedure in detail: Surgeon: Carlos Barahona MD Anesthesia: Christian Roman D.O. Procedure: The patient was brought to the endoscopy suite, placed in left lateral decubitus position. The patient was connected to monitoring devices. A time-out was performed. Sedation was administered. Once the patient was adequately sedated, a digital rectal exam was performed and was normal. The scope was then inserted and advanced to the cecum where the appendiceal orifice was identified and photographed. The scope was then slowly withdrawn over greater than 6 minutes. The mucosa was thoroughly inspected. There were 3 polyps in the ascending colon, each roughly 5 mm, each removed with a cold snare and sent together. There were 2 5 mm polyps in the sigmoid colon each removed with a cold snare and sent together. The scope was retroflexed in the rectum. No other abnormalities were seen. The scope was straightened and removed. The patient was awakened and brought to recovery. Scope withdrawal time: 12 minutes Sedation time: 17 minutes EBL: 5 mL Findings: 3 ascending polyps in 2 sigmoid polyps all less than 1 cm Post-procedure Disposition: PACU
[2023-11-09 09:03] VITALS: BP 110/48; PULSE 78; RESP 16; TEMP 36.6; O2SAT 98
[2023-11-09 09:07] VITALS: BP 94/56; PULSE 74; RESP 18; O2SAT 95
[2023-11-09 09:12] VITALS: BP 98/38; PULSE 95; RESP 12; O2SAT 96
[2023-11-09 09:16] VITALS: BP 109/58; PULSE 95; RESP 21; O2SAT 96
== END 2023-11-09 09:33 | disposition home or self-care (01) ==
PROVIDERS: PCP Family Medicine; Referring Provider Surgery; Visit Provider Surgery
PROC: 0DJD8ZZ Inspection of Lower Intestinal Tract, Via Natural or Artificial Opening Endoscopic (ICD-10-PCS; CPT 45378; principal; 2023-11-09 08:15)
DX: Z12.11 Encounter for screening for malignant neoplasm of colon (principal); D12.2 Benign neoplasm of ascending colon; D12.5 Benign neoplasm of sigmoid colon
CPT/HCPCS: 45385; J2704

== ENCOUNTER → 2023-11-30 07:06 | Outpatient (CLI) | payer MEDICARE, SELFPAY ==
[2021-10-07 09:48] VITALS: BMI 27.3
[2023-11-30 20:29] LABS: Alanine Aminotransferase 43 IU/L (<35); Albumin 4.3 g/dL (3.5-5.0); Albumin Globulin Ratio 1.7 (1.0-2.8); Alkaline Phosphatase 91 U/L (38-126); Aspartate Aminotransferase 37 IU/L (14-36); BUN Creatinine Ratio 20.9 (6-22); Bilirubin Total 0.6 mg/dL (0.2-1.3); Blood Urea Nitrogen 18 mg/dL (7-17); Calcium 9.4 mg/dL (8.4-10.2); Carbon Dioxide 27 mmol/L (22-32); Chloride 104 mmol/L (98-107); Cholesterol 186 mg/dL (140-199); Estimated Glomerular Filt Rate > 60 mL/min (>60); Globulin 2.5 g/dL (1.7-4.1); Glucose 160 mg/dL (80-110); HDL Cholesterol 69 mg/dL (40-60); HEMOLYSIS < 15 (0-50); LDL Cholesterol Calculated 68 mg/dL (<100); Potassium 4.5 mmol/L (3.4-5.1); Sodium 138 mmol/L (137-145); Total Protein 6.8 g/dL (6.3-8.2); Triglycerides 243 mg/dL (35-150)
[2023-11-30 20:54] LABS: Creatinine Urine Random 40.94 mg/dL
[2023-11-30 20:57] LABS: Microalbumin Urine Random < 0.6 mg/dL (0-1.6)
[2023-12-01 06:10] LABS: Hemoglobin A1C% w Est Avg Glu 7.2 % (4.0-6.0)
== END ==
PROVIDERS: PCP Family Medicine; Referring Provider Internal Medicine Endocrinology, Diabetes & Metabolism; Visit Provider Internal Medicine Endocrinology, Diabetes & Metabolism
DX: E11.9 Type 2 diabetes mellitus without complications (principal)
CPT/HCPCS: 36415; 80053; 80061; 82043; 82570; 83036

== ENCOUNTER → 2024-01-23 06:43 | Outpatient (CLI) | payer MEDICARE, SELFPAY ==
[2021-10-07 09:48] VITALS: BMI 27.3
[2024-01-23 08:32] LABS: Alanine Aminotransferase 66 IU/L (<35); Albumin 4.3 g/dL (3.5-5.0); Albumin Globulin Ratio 1.5 (1.0-2.8); Alkaline Phosphatase 98 U/L (38-126); Aspartate Aminotransferase 45 IU/L (14-36); BUN Creatinine Ratio 20.7 (6-22); Bilirubin Total 0.7 mg/dL (0.2-1.3); Blood Urea Nitrogen 19 mg/dL (7-17); Calcium 9.6 mg/dL (8.4-10.2); Carbon Dioxide 27 mmol/L (22-32); Chloride 107 mmol/L (98-107); Cholesterol 287 mg/dL (140-199); Estimated Glomerular Filt Rate > 60 mL/min (>60); Globulin 2.9 g/dL (1.7-4.1); Glucose 113 mg/dL (80-110); HDL Cholesterol 75 mg/dL (40-60); HEMOLYSIS < 15 (0-50); LDL Cholesterol Calculated 159 mg/dL (<100); Sodium 139 mmol/L (137-145); Total Protein 7.2 g/dL (6.3-8.2); Triglycerides 267 mg/dL (35-150)
[2024-01-23 08:33] LABS: Potassium 5.5 mmol/L (3.4-5.1)
== END ==
PROVIDERS: PCP Family Medicine; Referring Provider Internal Medicine Cardiovascular Disease; Visit Provider Internal Medicine Cardiovascular Disease
DX: E78.2 Mixed hyperlipidemia (principal)
CPT/HCPCS: 36415; 80053; 80061

== ENCOUNTER → 2024-05-07 07:23 | Outpatient (CLI) | payer MEDICARE, SELFPAY ==
[2021-10-07 09:48] VITALS: BMI 27.3
[2024-05-07 08:42] LABS: BUN Creatinine Ratio 16.1 (6-22); Blood Urea Nitrogen 14 mg/dL (7-17); Carbon Dioxide 27 mmol/L (22-32); Chloride 102 mmol/L (98-107); Cholesterol 188 mg/dL (140-199); Estimated Glomerular Filt Rate > 60 mL/min (>60); Glucose 181 mg/dL (80-110); HDL Cholesterol 68 mg/dL (40-60); HEMOLYSIS < 15 (0-50); LDL Cholesterol Calculated 71 mg/dL (<100); Sodium 136 mmol/L (137-145); Triglycerides 246 mg/dL (35-150)
[2024-05-07 09:19] LABS: Hemoglobin A1C% w Est Avg Glu 7.8 % (4.0-6.0)
[2024-05-07 09:48] LABS: Creatinine Urine Random 47.59 mg/dL
[2024-05-07 09:58] LABS: Microalbumin Urine Random < 0.6 mg/dL (0-1.6)
== END ==
PROVIDERS: PCP Family Medicine; Referring Provider Internal Medicine Endocrinology, Diabetes & Metabolism; Visit Provider Internal Medicine Endocrinology, Diabetes & Metabolism
DX: E11.9 Type 2 diabetes mellitus without complications (principal)
CPT/HCPCS: 36415; 80048; 80061; 82043; 82570; 83036

== ENCOUNTER → 2024-06-04 06:47 | Outpatient (CLI) | payer MEDICARE, SELFPAY ==
[2021-10-07 09:48] VITALS: BMI 27.3
[2024-06-04 08:34] LABS: Hemoglobin A1C% w Est Avg Glu 7.9 % (4.0-6.0)
[2024-06-04 09:00] LABS: Alanine Aminotransferase 58 IU/L (<35); Albumin 4.4 g/dL (3.5-5.0); Albumin Globulin Ratio 1.8 (1.0-2.8); Alkaline Phosphatase 90 U/L (38-126); Aspartate Aminotransferase 47 IU/L (14-36); BUN Creatinine Ratio 13.5 (6-22); Bilirubin Total 0.7 mg/dL (0.2-1.3); Blood Urea Nitrogen 12 mg/dL (7-17); Calcium 9.8 mg/dL (8.4-10.2); Carbon Dioxide 27 mmol/L (22-32); Chloride 103 mmol/L (98-107); Estimated Glomerular Filt Rate > 60 mL/min (>60); Globulin 2.5 g/dL (1.7-4.1); Glucose 156 mg/dL (80-110); HEMOLYSIS < 15 (0-50); Potassium 4.4 mmol/L (3.4-5.1); Sodium 137 mmol/L (137-145); Total Protein 6.9 g/dL (6.3-8.2)
[2024-06-05 07:36] LABS: C Peptide 3.3 ng/mL (1.1-4.4); Insulin Level Total 17.4 uIU/mL (2.6-24.9)
== END ==
PROVIDERS: Internal Medicine Endocrinology, Diabetes & Metabolism; PCP Family Medicine; Referring Provider Internal Medicine Cardiovascular Disease; Visit Provider Internal Medicine Cardiovascular Disease
DX: R74.01 Elevation of levels of liver transaminase levels (principal); E11.9 Type 2 diabetes mellitus without complications
CPT/HCPCS: 36415; 80053; 83036; 83525; 84681

== ENCOUNTER → 2024-07-25 14:47 | Outpatient (CLI) | payer MEDICARE, SELFPAY ==
[2021-10-07 09:48] VITALS: BMI 27.3
--- NOTE | 2024-07-25 14:50 | DI.MG.S_ITS ---
BILATERAL DIGITAL SCREENING MAMMOGRAM 3D/2D WITH CAD: 07/25/2024 CLINICAL: Routine screening. Comparison is made to exams dated: 06/21/2023 mammogram, 06/13/2022 mammogram, and 04/20/2021 mammogram - [facility]. The breasts are almost entirely fatty (category a/<25% glandular tissue). Current study was also evaluated with a Computer Aided Detection (CAD) system. There is a possible irregular low density asymmetry in the left breast at 1 o'clock posterior depth. No other significant masses, calcifications, or other findings are seen in either breast. IMPRESSION: INCOMPLETE: NEED ADDITIONAL IMAGING EVALUATION The possible irregular low density asymmetry in the left breast is indeterminate. Additional views with possible ultrasound are recommended. Based on the Tyrer Cuzick model (a risk assessment model) the patient's lifetime risk is 2.0% and her 10 year risk is 1.6%. According to the ACR, ACS, and NCCN guidelines, an annual breast MRI exam along with mammogram is recommended if the patient's lifetime risk is 20% or greater. This exam was interpreted at Station ID: [id number]. NOTE: For mammograms, a report in lay terms will be sent to the patient. Approximately 15% of breast malignancies will not be visualized mammographically. In the management of a palpable breast mass, a negative mammogram must not discourage biopsy of a clinically suspicious lesion. Electronically Signed By: Roman yo/beata:07/26/2024 19:37:57 letter sent: Additional Imaging Needed ACR BI-RADS Category 0: Incomplete: Need Additional Imaging Evaluation
== END ==
PROVIDERS: PCP Family Medicine; Referring Provider Family Medicine; Visit Provider Family Medicine
DX: Z12.31 Encounter for screening mammogram for malignant neoplasm of breast (principal); R92.313 Mammographic fatty tissue density, bilateral breasts
CPT/HCPCS: 77063; 77067

== ENCOUNTER → 2024-08-19 06:52 | Outpatient (CLI) | payer MEDICARE, SELFPAY ==
[2021-10-07 09:48] VITALS: BMI 27.3
[2024-08-19 08:07] LABS: BUN Creatinine Ratio 21.8 (6-22); Blood Urea Nitrogen 22 mg/dL (7-17); Calcium 10.2 mg/dL (8.4-10.2); Carbon Dioxide 25 mmol/L (22-32); Chloride 103 mmol/L (98-107); Estimated Glomerular Filt Rate 59 mL/min (>60); Glucose 148 mg/dL (80-110); HEMOLYSIS < 15 (0-50); Potassium 4.9 mmol/L (3.4-5.1); Sodium 138 mmol/L (137-145)
== END ==
PROVIDERS: PCP Family Medicine; Referring Provider Internal Medicine Endocrinology, Diabetes & Metabolism; Visit Provider Internal Medicine Endocrinology, Diabetes & Metabolism
DX: E11.9 Type 2 diabetes mellitus without complications (principal)
CPT/HCPCS: 36415; 80048

== ENCOUNTER → 2024-08-29 07:42 | Outpatient (CLI) | payer MEDICARE, SELFPAY ==
[2021-10-07 09:48] VITALS: BMI 27.3
--- NOTE | 2024-08-29 07:43 | DI.MG.S_ITS ---
UNILATERAL LEFT DIGITAL DIAGNOSTIC MAMMOGRAM 3D/2D WITH ADDITIONAL VIEWS: 08/29/2024 CLINICAL: Additional evaluation requested from prior study. Comparison is made to exams dated: 07/25/2024 mammogram, 06/21/2023 mammogram, and 06/13/2022 mammogram - [facility]. The breasts are almost entirely fatty (category a/<25% glandular tissue). There is a possible irregular low density asymmetry in the left breast at 1 o'clock posterior depth. This is not confirmed in additional views and appears less prominent. No other significant masses or calcifications are seen in the breast. IMPRESSION: INCOMPLETE: NEED ADDITIONAL IMAGING EVALUATION The possible irregular low density asymmetry in the left breast is indeterminate. An ultrasound is recommended for further evaluation and is scheduled to immediately follow this examination. Based on the Tyrer Cuzick model (a risk assessment model) the patient's lifetime risk is 2.0% and her 10 year risk is 1.6%. According to the ACR, ACS, and NCCN guidelines, an annual breast MRI exam along with mammogram is recommended if the patient's lifetime risk is 20% or greater. This exam was interpreted at Station ID: [id number]. NOTE: For mammograms, a report in lay terms will be sent to the patient. Approximately 15% of breast malignancies will not be visualized mammographically. In the management of a palpable breast mass, a negative mammogram must not discourage biopsy of a clinically suspicious lesion. Electronically Signed By: Roman Thomas M.D. aty/:08/29/2024 12:53:56 letter sent: Additional Imaging Needed ACR BI-RADS Category 0: Incomplete: Need Additional Imaging Evaluation
--- NOTE | 2024-08-29 07:43 | DI.US.S_ITS ---
LIMITED ULTRASOUND OF LEFT BREAST: 08/29/2024 CLINICAL: Patient returns today to evaluate a focal asymmetry in the left breast. Comparison is made to exams dated: 08/29/2024 mammogram, 07/25/2024 mammogram, and 06/21/2023 mammogram - [facility]. Real-time ultrasound of the left breast 1-2 o'clock region was performed. Farley scale images of the real-time examination were reviewed. There is a 0.3 cm x 0.3 cm x 0.3 cm oval cyst in the left breast at 1 o'clock posterior depth 10 cm from the nipple. This oval cyst is hypoechoic with a well-defined boundary, internal echoes, and no posterior acoustic shadowing or enhancement. This may or may not correlate with mammography findings. Color flow imaging demonstrates that there is no vascularity present. IMPRESSION: PROBABLY BENIGN The 0.3 cm x 0.3 cm x 0.3 cm oval cyst in the left breast resembles a complicated cyst and is probably benign. A follow-up left mammogram and a left ultrasound in 6 months is recommended to demonstrate stability. Findings and recommendations were conveyed to the patient during today's evaluation. This exam was interpreted at Station ID: [id number]. Electronically Signed By: Roman Thomas M.D. at/:08/29/2024 12:56:51 letter sent: Followup Recommended ACR BI-RADS Category 3: Probably Benign
== END ==
PROVIDERS: PCP Family Medicine; Referring Provider Family Medicine; Visit Provider Family Medicine
DX: R92.8 Other abnormal and inconclusive findings on diagnostic imaging of breast (principal); R92.313 Mammographic fatty tissue density, bilateral breasts
CPT/HCPCS: 76642; 77065; G0279

== ENCOUNTER → 2024-09-18 06:53 | Outpatient (CLI) | payer MEDICARE, SELFPAY ==
[2021-10-07 09:48] VITALS: BMI 27.3
[2024-09-18 09:08] LABS: BUN Creatinine Ratio 19.8 (6-22); Blood Urea Nitrogen 18 mg/dL (7-17); Calcium 9.7 mg/dL (8.4-10.2); Carbon Dioxide 25 mmol/L (22-32); Chloride 101 mmol/L (98-107); Estimated Glomerular Filt Rate > 60 mL/min (>60); Glucose 134 mg/dL (80-110); HEMOLYSIS < 15 (0-50); Potassium 4.4 mmol/L (3.4-5.1); Sodium 136 mmol/L (137-145)
== END ==
PROVIDERS: PCP Family Medicine; Referring Provider Internal Medicine Endocrinology, Diabetes & Metabolism; Visit Provider Internal Medicine Endocrinology, Diabetes & Metabolism
DX: N28.9 Disorder of kidney and ureter, unspecified (principal)
CPT/HCPCS: 36415; 80048

== ENCOUNTER → 2024-11-27 06:41 | Outpatient (CLI) | payer MEDICARE, SELFPAY ==
[2021-10-07 09:48] VITALS: BMI 27.3
[2024-11-27 08:01] LABS: Hemoglobin A1C% w Est Avg Glu 6.7 % (4.0-6.0)
[2024-11-27 08:11] LABS: Iron 68 ug/dL (37-170)
[2024-11-27 08:14] LABS: BUN Creatinine Ratio 22.9 (6-22); Blood Urea Nitrogen 19 mg/dL (7-17); Calcium 9.5 mg/dL (8.4-10.2); Carbon Dioxide 25 mmol/L (22-32); Chloride 101 mmol/L (98-107); Cholesterol 158 mg/dL (140-199); Estimated Glomerular Filt Rate > 60 mL/min (>60); Glucose 125 mg/dL (70-99); HDL Cholesterol 65 mg/dL (40-60); HEMOLYSIS < 15 (0-50); LDL Cholesterol Calculated 56 mg/dL (<100); Potassium 4.2 mmol/L (3.4-5.1); Sodium 135 mmol/L (137-145); Triglycerides 187 mg/dL (35-150)
[2024-11-27 08:27] LABS: Free T4, Direct Thyroxine 1.03 ng/dL (0.78-2.19)
[2024-11-27 08:41] LABS: Thyroid Stimulating Hormone 1.37 uIU/mL (0.47-4.68)
[2024-11-27 08:46] LABS: Ferritin 105 ng/mL (11-264)
[2024-11-27 09:00] LABS: Vitamin B12 830 pg/mL (239-931)
[2024-11-27 09:03] LABS: Creatinine Urine Random 42.67 mg/dL; Protein (Total) Urine Random 13 mg/dL (0-12)
== END ==
PROVIDERS: PCP Family Medicine; Referring Provider Internal Medicine Endocrinology, Diabetes & Metabolism; Visit Provider Internal Medicine Endocrinology, Diabetes & Metabolism
DX: E11.9 Type 2 diabetes mellitus without complications (principal); E03.9 Hypothyroidism, unspecified; L65.9 Nonscarring hair loss, unspecified
CPT/HCPCS: 36415; 80048; 80061; 82570; 82607; 82642; 82728; 83036; 83540; 84156; 84402; 84403; 84439; 84443

== ENCOUNTER → 2025-01-17 13:37 | Outpatient (CLI) | payer MEDICARE, SELFPAY ==
[2021-10-07 09:48] VITALS: BMI 27.3
--- NOTE | 2025-01-17 13:38 | DI.RAD.S_ITS ---
PROCEDURE: XR FOOT LT MIN 3V INDICATIONS: Lateral foot and ankle pain, twisted TECHNIQUE: 3 views of the foot were acquired. COMPARISON: None. FINDINGS: Bones: No fractures or dislocations. Degenerative changes throughout the foot, moderate to severe involving the 1st MTP joint. No suspicious bony lesions. Soft tissues: No tibiotalar joint effusion. Achilles tendon appears normal. IMPRESSION: No acute osseous abnormality. If pain persists with conservative management, consider repeat x-ray in 10-14 days or cross-sectional imaging. Dictated by: Keaton Johnson M.D. on 01/18/2025 at 16:05 Approved by: Keaton Johnson M.D. on 01/18/2025 at 16:05
--- NOTE | 2025-01-17 13:38 | DI.RAD.S_ITS ---
PROCEDURE: XR ANKLE LT MIN 3V INDICATIONS: Lateral foot and ankle pain, twisted TECHNIQUE: 3 views of the ankle were acquired. COMPARISON: None. FINDINGS: Bones: No fractures or dislocations. Ankle mortise is normally aligned. No suspicious bony lesions. Soft tissues: No tibiotalar joint effusion. Achilles tendon appears normal. IMPRESSION: No acute osseous abnormality. If pain persists with conservative management, consider repeat x-ray in 10-14 days or cross-sectional imaging. Dictated by: Keaton Johnson M.D. on 01/18/2025 at 16:04 Approved by: Keaton Johnson M.D. on 01/18/2025 at 16:05
== END ==
PROVIDERS: PCP Family Medicine; Referring Provider Nurse Practitioner Family; Visit Provider Nurse Practitioner Family
DX: S99.922A Unspecified injury of left foot, initial encounter (principal); X50.0XXA Overexertion from strenuous movement or load, initial encounter
CPT/HCPCS: 73610; 73630

== ENCOUNTER → 2025-02-17 12:01 | Outpatient (CLI) | payer MEDICARE, SELFPAY ==
[2021-10-07 09:48] VITALS: BMI 27.3
--- NOTE | 2025-02-17 12:02 | DI.RAD.S_ITS ---
PROCEDURE: XR FOOT LT MIN 3V INDICATIONS: Left foot injury and pain TECHNIQUE: Three views of the foot were acquired. COMPARISON: [facility], , XR FOOT LT MIN 3V, 01/17/2025, 13:38. FINDINGS: Bones: No fractures or dislocations. No suspicious bony lesions. Moderate 1st MTP joint osteoarthritis. Mild degeneration at the TMT joints. Soft tissues: No tibiotalar joint effusion. Achilles tendon appears normal. IMPRESSION: No acute bony abnormality. If there is continued concern for occult fracture, immobilization and reimaging in 7-10 days is recommended. Dictated by: Tigist Rosado M.D. on 02/17/2025 at 17:30 Approved by: Tigist Rosado M.D. on 02/17/2025 at 17:31
== END ==
PROVIDERS: PCP Family Medicine; Referring Provider Family Medicine; Visit Provider Family Medicine
DX: S99.922A Unspecified injury of left foot, initial encounter (principal); M79.672 Pain in left foot
CPT/HCPCS: 73630

== ENCOUNTER → 2025-02-18 10:06 | Outpatient (CLI) | payer MEDICARE, SELFPAY ==
[2021-10-07 09:48] VITALS: BMI 27.3
--- NOTE | 2025-02-18 10:08 | DI.US.S_ITS ---
MM diagnostic mammo unilat LT, US breast LT limited: 02/18/2025 BI-RADS: 3 CLINICAL: 75-year old female for left diagnostic mammogram and left diagnostic breast ultrasound. The patient presents for a follow-up. Tyrer-Cuzick lifetime risk of 1.9%. No personal or first-degree family history of breast cancer. PRIOR EXAMS 08/29/2024, 07/25/2024, 06/21/2023, 06/13/2022. MAMMOGRAPHY TECHNIQUE: 2D and 3D (tomosynthesis) digital mammographic views obtained, with additional images as needed for full coverage. Current study was also evaluated with a Computer Aided Detection (CAD) system. ULTRASOUND TECHNIQUE TARGETED Left Breast Ultrasound: Real-time ultrasound exam was performed focused to area of clinical and/or imaging concern. Real-time gamble scale and color doppler imaging of the area of clinical interest was performed with image documentation. DENSITY Left: B. There are scattered areas of fibroglandular density. MAMMOGRAPHY FINDINGS Left: Upper Outer at 1:00, Posterior depth: Correlating with prior imaging concern, there is a stable focal asymmetry present. ULTRASOUND FINDINGS Left: Upper Outer at 1:00, 10 cm from nipple, measuring 0.3 x 0.3 x 0.3 cm: Correlating with prior imaging concern there is a complicated cyst that is unchanged in size and appearance. IMPRESSION: Left (Asymmetry): Upper Outer at 1:00, Posterior depth * Probably Benign. Left (Complicated Cyst): Upper Outer at 1:00, 10 cm from nipple, measuring 0.3 x 0.3 x 0.3 cm * Probably Benign. RECOMMENDATIONS Left * Six month followup with diagnostic mammography and diagnostic ultrasound. When the patient returns for short-term unilateral followup, a mammogram for the contralateral breast will also be due. COMMENTS: Findings and recommendations were conveyed to the patient during today's evaluation. OVERALL ASSESSMENT CATEGORY BI-RADS-3: Probably Benign. ELECTRONICALLY SIGNED: Radha Love M.D. on 02/18/2025 at 02:39:43 PM PT Interpreting Station ID: [id number]
== END ==
PROVIDERS: PCP Family Medicine; Referring Provider Family Medicine; Visit Provider Family Medicine
DX: R92.8 Other abnormal and inconclusive findings on diagnostic imaging of breast (principal); N60.02 Solitary cyst of left breast
CPT/HCPCS: 76642; 77065; G0279

== ENCOUNTER → 2025-06-24 08:19 | Outpatient (CLI) | payer MEDICARE, SELFPAY ==
[2021-10-07 09:48] VITALS: BMI 27.3
[2025-06-24 09:43] LABS: Blood Urea Nitrogen 18 mg/dL (7-17); Calcium 9.6 mg/dL (8.4-10.2); Carbon Dioxide 27 mmol/L (22-32); Chloride 102 mmol/L (98-107); Cholesterol 170 mg/dL (140-199); Estimated Glomerular Filt Rate > 60 mL/min (>60); Glucose 146 mg/dL (70-99); HDL Cholesterol 87 mg/dL (40-60); HEMOLYSIS < 15 (0-50); Potassium 4.5 mmol/L (3.4-5.1); Sodium 138 mmol/L (137-145); Triglycerides 143 mg/dL (35-150)
[2025-06-24 09:45] LABS: Hemoglobin A1C% w Est Avg Glu 7.3 % (4.0-6.0)
[2025-06-25 16:57] LABS: Microalbumi Creatinin Ratio Ur 17.0 ug/mg CR (<30)
== END ==
PROVIDERS: PCP Family Medicine; Referring Provider Internal Medicine Endocrinology, Diabetes & Metabolism; Visit Provider Internal Medicine Endocrinology, Diabetes & Metabolism
DX: E11.9 Type 2 diabetes mellitus without complications (principal)
CPT/HCPCS: 36415; 80048; 80061; 82043; 82570; 83036